=== PATIENT | male | born 1935 | race Caucasian/White ===

== ENCOUNTER 2017-03-11 03:36 | Inpatient (IN) | payer MEDICARE, OTHER ==
[~2017-03-11] VITALS: Ht 182.9 cm; Wt 84.0 kg
[~2017-03-11 03:36] MED LIST: ASPI81CH PO; BISHYD10 PO; DIGO.125 PO; DILT120ERA PO; DILT180 PO; DILT180ER PO; DILTIAZEM 24HR180 MG PO; ENOX100I SC; Glyburide-Metf1 EAC2 PO; HYDROCODONE-HOMA5 ML PO; LEVO750 PO; LISHYD2025 PO; LISI5 PO; Lanoxin125 MCG PO; Micro-K10 MEQ PO; POTCHL10ER PO; PRAV20 PO; SPIR25 PO; TRIHYD5075 PO; VALA500 PO; WARF2.5 PO; WARF3 PO; WARF5 PO; ZESTORETIC 20-121 EA PO; ZESTORETIC 20-251 EA PO; ZESTRIL40 MG PO; ZOLP10 PO
[2017-03-11 04:31] LABS: BASOPHILS ABSOLUTE AUTO 0.05 K/mm3 (0.00-0.23); BASOPHILS PERCENT AUTO 1 % (0-2); EOSINOPHILS ABSOLUTE AUTO 0.26 K/mm3 (0.00-0.68); EOSINOPHILS PERCENT AUTO 5 % (0-6); Hematocrit 37.5 % (37.0-53.0); Hemoglobin 11.7 g/dL (13.5-17.5); IMMATURE GRAN ABSOLUTE AUTO 0.02 K/mm3 (0.00-0.10); IMMATURE GRAN PERCENT AUTO 0 % (0-1); LYMPHOCYTES PERCENT AUTO 12 % (21-46); MONOCYTES ABSOLUTE AUTO 0.58 K/mm3 (0.16-1.47); MONOCYTES PERCENT AUTO 10 % (4-13); Mean Corpuscular HGB Conc 31.2 g/dL (31.5-36.5); Mean Corpuscular Volume 86 fL (80-100); Mean Platelet Volume 10.4 fL (9.1-12.4); NEUTROPHILS PERCENT AUTO 72 % (41-73); Platelet Count 188 K/mm3 (150-400); RDW Coefficient Variation 16.8 % (11.7-14.2); RDW Standard Deviation 53.5 fL (35.1-46.3); Red Blood Cell Count 4.34 M/mm3 (4.30-5.90); White Blood Cell Count 5.81 K/mm3 (4.00-11.30)
[2017-03-11 04:58] LABS: Alanine Aminotransfer (ALT/SGP 34 U/L (12-78); Albumin, Blood 3.1 g/dL (3.4-5.0); Albumin/Globulin Ratio 0.8 (0.8-1.8); Alk Phos 126 U/L (50-136); Anion Gap 8 mmol/L (6-16); Aspartate Aminotrans (AST/SGOT 28 U/L (12-37); Bilirubin, Total 0.6 mg/dL (0.1-1.0); Blood Urea Nitrogen 18 mg/dL (8-24); Bun/Creatinine Ratio 15.7 (12.0-20.0); CO2, Blood 26 mmol/L (21-32); Calcium, Blood 8.6 mg/dL (8.5-10.1); Chloride, Blood 105 mmol/L (98-108); Creatinine, Blood 1.15 mg/dL (0.60-1.20); Globulin, Blood 3.9 g/dL (2.2-4.0); Glomerular Filtration Rate >60 (60-); Glucose, Blood 165 mg/dL (70-99); Potassium, Blood 4.6 mmol/L (3.5-5.5); Sodium, Blood 139 mmol/L (136-145); Troponin I 0.198 ng/mL (0.000-0.040)
[2017-03-11 05:32] LABS: International Normalized Ratio 1.82; Prothrombin Time Results 19.3 Sec (9.7-11.5)
[2017-03-12 05:02] LABS: BASOPHILS ABSOLUTE AUTO 0.06 K/mm3 (0.00-0.23); BASOPHILS PERCENT AUTO 1 % (0-2); EOSINOPHILS ABSOLUTE AUTO 0.36 K/mm3 (0.00-0.68); EOSINOPHILS PERCENT AUTO 6 % (0-6); Hematocrit 36.7 % (37.0-53.0); Hemoglobin 11.7 g/dL (13.5-17.5); IMMATURE GRAN ABSOLUTE AUTO 0.02 K/mm3 (0.00-0.10); IMMATURE GRAN PERCENT AUTO 0 % (0-1); LYMPHOCYTES ABSOLUTE AUTO 0.83 K/mm3 (0.84-5.20); LYMPHOCYTES PERCENT AUTO 14 % (21-46); MONOCYTES PERCENT AUTO 14 % (4-13); Mean Corpuscular HGB 27.3 pg (26.0-34.0); Mean Corpuscular HGB Conc 31.9 g/dL (31.5-36.5); Mean Corpuscular Volume 86 fL (80-100); Mean Platelet Volume 10.7 fL (9.1-12.4); NEUTROPHILS ABSOLUTE AUTO 3.75 K/mm3 (1.96-9.15); NEUTROPHILS PERCENT AUTO 65 % (41-73); Platelet Count 194 K/mm3 (150-400); RDW Coefficient Variation 16.9 % (11.7-14.2); RDW Standard Deviation 52.2 fL (35.1-46.3); Red Blood Cell Count 4.29 M/mm3 (4.30-5.90); White Blood Cell Count 5.82 K/mm3 (4.00-11.30)
[2017-03-12 05:13] LABS: International Normalized Ratio 2.56; Prothrombin Time Results 27.4 Sec (9.7-11.5)
[2017-03-12 05:31] LABS: Bun/Creatinine Ratio 14.4 (12.0-20.0); Calcium, Blood 8.6 mg/dL (8.5-10.1); Creatinine, Blood 1.32 mg/dL (0.60-1.20)
[2018-01-04] MEDS ORDERED: ALBU90OI INH (08:05)
== END 2017-03-12 10:07 | disposition home or self-care (01) | DRG 292 ==
LOC: ER 03:36 → MEDS 06:25
PROVIDERS: Emergency Medicine; Internal Medicine; Pharmacist
DX: I11.0 Hypertensive heart disease with heart failure (principal); I24.8 Other forms of acute ischemic heart disease; I48.91 Unspecified atrial fibrillation; J20.9 Acute bronchitis, unspecified; E11.9 Type 2 diabetes mellitus without complications; I25.10 Atherosclerotic heart disease of native coronary artery without angina pectoris; R79.1 Abnormal coagulation profile; I50.33 Acute on chronic diastolic (congestive) heart failure; E78.5 Hyperlipidemia, unspecified; F17.210 Nicotine dependence, cigarettes, uncomplicated; Z79.899 Other long term (current) drug therapy; Z79.01 Long term (current) use of anticoagulants; Z79.84 Long term (current) use of oral hypoglycemic drugs; Z79.82 Long term (current) use of aspirin; Z88.0 Allergy status to penicillin; Z88.7 Allergy status to serum and vaccine; Z95.5 Presence of coronary angioplasty implant and graft; Z95.2 Presence of prosthetic heart valve
CPT/HCPCS: 36415; 71046; 80048; 80053; 82947; 83735; 83880; 84484; 85025; 85610; 93005; 93010; 94760; 96365; 96372; 99285; J1650; J1940; J3475

== ENCOUNTER 2017-03-28 03:54 | Emergency (ER) | payer MEDICARE, OTHER ==
[~2017-03-28] VITALS: Ht 180.3 cm; Wt 81.7 kg
[2017-03-28 05:16] LABS: BASOPHILS ABSOLUTE AUTO 0.04 K/mm3 (0.00-0.23); BASOPHILS PERCENT AUTO 1 % (0-2); EOSINOPHILS ABSOLUTE AUTO 0.28 K/mm3 (0.00-0.68); EOSINOPHILS PERCENT AUTO 4 % (0-6); Hematocrit 39.8 % (37.0-53.0); Hemoglobin 12.3 g/dL (13.5-17.5); IMMATURE GRAN ABSOLUTE AUTO 0.02 K/mm3 (0.00-0.10); IMMATURE GRAN PERCENT AUTO 0 % (0-1); LYMPHOCYTES ABSOLUTE AUTO 0.79 K/mm3 (0.84-5.20); LYMPHOCYTES PERCENT AUTO 12 % (21-46); MONOCYTES ABSOLUTE AUTO 0.83 K/mm3 (0.16-1.47); MONOCYTES PERCENT AUTO 12 % (4-13); Mean Corpuscular HGB 26.7 pg (26.0-34.0); Mean Corpuscular HGB Conc 30.9 g/dL (31.5-36.5); Mean Corpuscular Volume 87 fL (80-100); Mean Platelet Volume 10.9 fL (9.1-12.4); NEUTROPHILS ABSOLUTE AUTO 4.89 K/mm3 (1.96-9.15); NEUTROPHILS PERCENT AUTO 71 % (41-73); Platelet Count 151 K/mm3 (150-400); RDW Coefficient Variation 18.2 % (11.7-14.2); RDW Standard Deviation 56.8 fL (35.1-46.3); White Blood Cell Count 6.85 K/mm3 (4.00-11.30)
[2017-03-28 05:40] LABS: Alanine Aminotransfer (ALT/SGP 24 U/L (12-78); Albumin, Blood 3.3 g/dL (3.4-5.0); Albumin/Globulin Ratio 0.8 (0.8-1.8); Alk Phos 139 U/L (50-136); Anion Gap 7 mmol/L (6-16); Aspartate Aminotrans (AST/SGOT 18 U/L (12-37); Bilirubin, Total 0.6 mg/dL (0.1-1.0); Blood Urea Nitrogen 20 mg/dL (8-24); Bun/Creatinine Ratio 18.3 (12.0-20.0); CO2, Blood 25 mmol/L (21-32); Chloride, Blood 108 mmol/L (98-108); Creatinine, Blood 1.09 mg/dL (0.60-1.20); Globulin, Blood 3.9 g/dL (2.2-4.0); Glomerular Filtration Rate >60 (60-); Glucose, Blood 109 mg/dL (70-99); Potassium, Blood 4.8 mmol/L (3.5-5.5); Sodium, Blood 140 mmol/L (136-145); Total Protein, Blood 7.2 g/dL (6.4-8.2)
[2017-03-28 05:49] LABS: Troponin I 0.231 ng/mL (0.000-0.040)
[2017-03-28] MEDS ORDERED: Lasix40 MG PO (08:32)
[2018-01-04] MEDS ORDERED: ALBU90OI INH (08:05)
== END 2017-03-28 08:46 | disposition home or self-care (01) ==
LOC: ER 03:54
PROVIDERS: Emergency Medicine
DX: I11.0 Hypertensive heart disease with heart failure (principal); I50.9 Heart failure, unspecified; I48.91 Unspecified atrial fibrillation; R79.89 Other specified abnormal findings of blood chemistry; E11.9 Type 2 diabetes mellitus without complications; E78.5 Hyperlipidemia, unspecified; F17.210 Nicotine dependence, cigarettes, uncomplicated; Z88.0 Allergy status to penicillin; Z88.7 Allergy status to serum and vaccine; Z79.899 Other long term (current) drug therapy; Z79.01 Long term (current) use of anticoagulants; Z79.82 Long term (current) use of aspirin
CPT/HCPCS: 36415; 71046; 80053; 83880; 84484; 85025; 93005; 93010; 94640; 96374; 99284; J1940

== ENCOUNTER 2017-04-02 07:22 | Emergency (ER) | payer MEDICARE, OTHER ==
[~2017-04-02] VITALS: Ht 182.9 cm; Wt 82.5 kg
[~2017-04-02 07:22] MED LIST changes: +Lasix40 MG PO
[2017-04-02 08:18] LABS: BASOPHILS ABSOLUTE AUTO 0.02 K/mm3 (0.00-0.23); BASOPHILS PERCENT AUTO 0 % (0-2); EOSINOPHILS ABSOLUTE AUTO 0.29 K/mm3 (0.00-0.68); EOSINOPHILS PERCENT AUTO 5 % (0-6); Hematocrit 42.9 % (37.0-53.0); IMMATURE GRAN ABSOLUTE AUTO 0.02 K/mm3 (0.00-0.10); IMMATURE GRAN PERCENT AUTO 0 % (0-1); LYMPHOCYTES ABSOLUTE AUTO 0.67 K/mm3 (0.84-5.20); LYMPHOCYTES PERCENT AUTO 11 % (21-46); MONOCYTES PERCENT AUTO 13 % (4-13); Mean Corpuscular HGB 26.7 pg (26.0-34.0); Mean Corpuscular HGB Conc 30.3 g/dL (31.5-36.5); Mean Corpuscular Volume 88 fL (80-100); Mean Platelet Volume 10.7 fL (9.1-12.4); NEUTROPHILS ABSOLUTE AUTO 4.34 K/mm3 (1.96-9.15); NEUTROPHILS PERCENT AUTO 71 % (41-73); Platelet Count 146 K/mm3 (150-400); RDW Coefficient Variation 17.7 % (11.7-14.2); RDW Standard Deviation 56.4 fL (35.1-46.3); Red Blood Cell Count 4.87 M/mm3 (4.30-5.90); White Blood Cell Count 6.14 K/mm3 (4.00-11.30)
[2017-04-02 08:32] LABS: Anion Gap 9 mmol/L (6-16); Blood Urea Nitrogen 24 mg/dL (8-24); Bun/Creatinine Ratio 22.9 (12.0-20.0); CO2, Blood 25 mmol/L (21-32); Calcium, Blood 8.8 mg/dL (8.5-10.1); Chloride, Blood 103 mmol/L (98-108); Creatinine, Blood 1.05 mg/dL (0.60-1.20); Glomerular Filtration Rate >60 (60-); Glucose, Blood 138 mg/dL (70-99); Potassium, Blood 4.6 mmol/L (3.5-5.5); Sodium, Blood 137 mmol/L (136-145); Troponin I 0.175 ng/mL (0.000-0.040)
[2017-04-02 08:52] LABS: International Normalized Ratio 3.23; Prothrombin Time Results 34.8 Sec (9.7-11.5)
[2017-04-02] MEDS ORDERED: ALBU90OI6 INH (09:26)
[2018-01-04] MEDS ORDERED: ALBU90OI INH (08:05)
== END 2017-04-02 09:38 | disposition home or self-care (01) ==
LOC: ER 07:22
PROVIDERS: Emergency Medicine
DX: I11.0 Hypertensive heart disease with heart failure (principal); I50.9 Heart failure, unspecified; J44.9 Chronic obstructive pulmonary disease, unspecified; R79.89 Other specified abnormal findings of blood chemistry; E11.9 Type 2 diabetes mellitus without complications; E78.5 Hyperlipidemia, unspecified; F17.210 Nicotine dependence, cigarettes, uncomplicated; Z88.0 Allergy status to penicillin; Z88.7 Allergy status to serum and vaccine; Z79.899 Other long term (current) drug therapy; Z79.01 Long term (current) use of anticoagulants; Z79.82 Long term (current) use of aspirin
CPT/HCPCS: 36415; 71045; 80048; 83880; 84484; 85025; 85610; 93005; 93010; 94640; 96374; 99283; J1940

== ENCOUNTER 2017-04-06 19:58 | Inpatient (IN) | payer MEDICARE, OTHER ==
[~2017-04-06] VITALS: Ht 182.9 cm; Wt 87.1 kg
[~2017-04-06 19:58] MED LIST changes: +ALBU90OI6 INH
[2017-04-06 21:44] LABS: Troponin I 0.124 ng/mL (0.000-0.040)
[2017-04-06 21:51] LABS: Alanine Aminotransfer (ALT/SGP 27 U/L (12-78); Albumin, Blood 3.9 g/dL (3.4-5.0); Albumin/Globulin Ratio 0.8 (0.8-1.8); Alk Phos 169 U/L (50-136); Anion Gap 12 mmol/L (6-16); Aspartate Aminotrans (AST/SGOT 32 U/L (12-37); Bilirubin, Total 0.9 mg/dL (0.1-1.0); Blood Urea Nitrogen 29 mg/dL (8-24); Bun/Creatinine Ratio 24.8 (12.0-20.0); CO2, Blood 23 mmol/L (21-32); Calcium, Blood 9.2 mg/dL (8.5-10.1); Chloride, Blood 99 mmol/L (98-108); Creatinine, Blood 1.17 mg/dL (0.60-1.20); Digoxin (Lanoxin) 0.13 ug/mL (0.80-2.00); Globulin, Blood 5.1 g/dL (2.2-4.0); Glomerular Filtration Rate >60 (60-); Glucose, Blood 81 mg/dL (70-99); Potassium, Blood 4.6 mmol/L (3.5-5.5); Sodium, Blood 134 mmol/L (136-145)
[2017-04-06 22:16] LABS: BASOPHILS ABSOLUTE AUTO 0.03 K/mm3 (0.00-0.23); BASOPHILS PERCENT AUTO 0 % (0-2); EOSINOPHILS ABSOLUTE AUTO 0.29 K/mm3 (0.00-0.68); EOSINOPHILS PERCENT AUTO 4 % (0-6); Hemoglobin 12.3 g/dL (13.5-17.5); IMMATURE GRAN ABSOLUTE AUTO 0.02 K/mm3 (0.00-0.10); IMMATURE GRAN PERCENT AUTO 0 % (0-1); LYMPHOCYTES ABSOLUTE AUTO 0.47 K/mm3 (0.84-5.20); LYMPHOCYTES PERCENT AUTO 6 % (21-46); MONOCYTES ABSOLUTE AUTO 0.79 K/mm3 (0.16-1.47); MONOCYTES PERCENT AUTO 11 % (4-13); Mean Corpuscular HGB 26.7 pg (26.0-34.0); Mean Corpuscular HGB Conc 31.5 g/dL (31.5-36.5); Mean Platelet Volume 9.8 fL (9.1-12.4); NEUTROPHILS ABSOLUTE AUTO 5.77 K/mm3 (1.96-9.15); NEUTROPHILS PERCENT AUTO 78 % (41-73); Platelet Count 112 K/mm3 (150-400); RDW Coefficient Variation 17.7 % (11.7-14.2); RDW Standard Deviation 54.7 fL (35.1-46.3); White Blood Cell Count 7.37 K/mm3 (4.00-11.30)
[2017-04-06 22:22] LABS: Mean Corpuscular Volume 85 fL (80-100)
[2017-04-06 22:28] LABS: International Normalized Ratio 3.12; Prothrombin Time Results 33.6 Sec (9.7-11.5)
[2017-04-07 05:14] LABS: BASOPHILS ABSOLUTE AUTO 0.03 K/mm3 (0.00-0.23); BASOPHILS PERCENT AUTO 1 % (0-2); EOSINOPHILS ABSOLUTE AUTO 0.12 K/mm3 (0.00-0.68); EOSINOPHILS PERCENT AUTO 2 % (0-6); Hematocrit 38.8 % (37.0-53.0); Hemoglobin 12.2 g/dL (13.5-17.5); IMMATURE GRAN ABSOLUTE AUTO 0.02 K/mm3 (0.00-0.10); IMMATURE GRAN PERCENT AUTO 0 % (0-1); LYMPHOCYTES ABSOLUTE AUTO 0.65 K/mm3 (0.84-5.20); LYMPHOCYTES PERCENT AUTO 10 % (21-46); MONOCYTES ABSOLUTE AUTO 0.75 K/mm3 (0.16-1.47); MONOCYTES PERCENT AUTO 12 % (4-13); Mean Corpuscular HGB 26.6 pg (26.0-34.0); Mean Corpuscular HGB Conc 31.4 g/dL (31.5-36.5); Mean Corpuscular Volume 85 fL (80-100); Mean Platelet Volume 11.7 fL (9.1-12.4); NEUTROPHILS ABSOLUTE AUTO 4.96 K/mm3 (1.96-9.15); NEUTROPHILS PERCENT AUTO 76 % (41-73); Platelet Count 122 K/mm3 (150-400); RDW Coefficient Variation 17.8 % (11.7-14.2); RDW Standard Deviation 54.8 fL (35.1-46.3); Red Blood Cell Count 4.59 M/mm3 (4.30-5.90); White Blood Cell Count 6.53 K/mm3 (4.00-11.30)
[2017-04-07 05:35] LABS: International Normalized Ratio 3.05; Prothrombin Time Results 32.8 Sec (9.7-11.5)
[2017-04-07 05:42] LABS: Albumin, Blood 3.2 g/dL (3.4-5.0); Anion Gap 8 mmol/L (6-16); Blood Urea Nitrogen 30 mg/dL (8-24); Bun/Creatinine Ratio 25.4 (12.0-20.0); CO2, Blood 28 mmol/L (21-32); Calcium, Blood 8.5 mg/dL (8.5-10.1); Chloride, Blood 100 mmol/L (98-108); Creatinine, Blood 1.18 mg/dL (0.60-1.20); Glomerular Filtration Rate >60 (60-); Glucose, Blood 102 mg/dL (70-99); Phosphorus, Blood 3.4 mg/dL (2.5-4.9); Potassium, Blood 4.8 mmol/L (3.5-5.5); Sodium, Blood 136 mmol/L (136-145)
[2017-04-08 05:09] LABS: International Normalized Ratio 2.52
[2017-04-08] MEDS ORDERED: Lopressor 50 mg50 MG PO (09:35)
[2018-01-04] MEDS ORDERED: ALBU90OI INH (08:05)
== END 2017-04-08 11:21 | disposition home or self-care (01) | DRG 309 ==
LOC: ER 19:58 → PCU 04-07 01:14
PROVIDERS: Family Medicine; Physician Assistant
DX: I48.91 Unspecified atrial fibrillation (principal); E87.1 Hypo-osmolality and hyponatremia; I42.9 Cardiomyopathy, unspecified; I11.0 Hypertensive heart disease with heart failure; I50.32 Chronic diastolic (congestive) heart failure; E11.9 Type 2 diabetes mellitus without complications; I25.10 Atherosclerotic heart disease of native coronary artery without angina pectoris; E78.5 Hyperlipidemia, unspecified; J44.9 Chronic obstructive pulmonary disease, unspecified; Z95.5 Presence of coronary angioplasty implant and graft; Z95.2 Presence of prosthetic heart valve; Z88.0 Allergy status to penicillin; Z88.7 Allergy status to serum and vaccine; Z79.01 Long term (current) use of anticoagulants; Z79.82 Long term (current) use of aspirin; Z79.84 Long term (current) use of oral hypoglycemic drugs; Z79.899 Other long term (current) drug therapy; Z85.828 Personal history of other malignant neoplasm of skin; Z87.891 Personal history of nicotine dependence
CPT/HCPCS: 36415; 71046; 80053; 80069; 80162; 82947; 83735; 83880; 84443; 84484; 85025; 85610; 93005; 93010; 93306; 94760; 96365; 96366; 99285; J2060

== ENCOUNTER 2017-04-14 08:05 | Inpatient (IN) | payer MEDICARE, OTHER ==
[~2017-04-14] VITALS: Ht 182.9 cm; Wt 80.9 kg
[~2017-04-14 08:05] MED LIST changes: +Lopressor 50 mg50 MG PO
[2017-04-14 09:04] LABS: BASOPHILS ABSOLUTE AUTO 0.06 K/mm3 (0.00-0.23); BASOPHILS PERCENT AUTO 1 % (0-2); EOSINOPHILS ABSOLUTE AUTO 0.34 K/mm3 (0.00-0.68); EOSINOPHILS PERCENT AUTO 3 % (0-6); Hematocrit 41.9 % (37.0-53.0); Hemoglobin 12.9 g/dL (13.5-17.5); IMMATURE GRAN ABSOLUTE AUTO 0.09 K/mm3 (0.00-0.10); IMMATURE GRAN PERCENT AUTO 1 % (0-1); LYMPHOCYTES ABSOLUTE AUTO 0.55 K/mm3 (0.84-5.20); LYMPHOCYTES PERCENT AUTO 5 % (21-46); MONOCYTES ABSOLUTE AUTO 1.02 K/mm3 (0.16-1.47); MONOCYTES PERCENT AUTO 9 % (4-13); Mean Corpuscular HGB 26.7 pg (26.0-34.0); Mean Corpuscular HGB Conc 30.8 g/dL (31.5-36.5); Mean Corpuscular Volume 87 fL (80-100); Mean Platelet Volume 9.9 fL (9.1-12.4); NEUTROPHILS ABSOLUTE AUTO 9.96 K/mm3 (1.96-9.15); NEUTROPHILS PERCENT AUTO 83 % (41-73); Platelet Count 209 K/mm3 (150-400); RDW Coefficient Variation 17.7 % (11.7-14.2); RDW Standard Deviation 56.4 fL (35.1-46.3); Red Blood Cell Count 4.83 M/mm3 (4.30-5.90); White Blood Cell Count 12.02 K/mm3 (4.00-11.30)
[2017-04-14 09:18] LABS: International Normalized Ratio 2.68; Prothrombin Time Results 28.7 Sec (9.7-11.5)
[2017-04-14 09:24] LABS: Alanine Aminotransfer (ALT/SGP 26 U/L (12-78); Albumin, Blood 3.4 g/dL (3.4-5.0); Albumin/Globulin Ratio 0.8 (0.8-1.8); Alk Phos 148 U/L (50-136); Anion Gap 7 mmol/L (6-16); Aspartate Aminotrans (AST/SGOT 24 U/L (12-37); Bilirubin, Total 0.5 mg/dL (0.1-1.0); Blood Urea Nitrogen 23 mg/dL (8-24); Bun/Creatinine Ratio 19.5 (12.0-20.0); CO2, Blood 29 mmol/L (21-32); Chloride, Blood 101 mmol/L (98-108); Creatinine, Blood 1.18 mg/dL (0.60-1.20); Globulin, Blood 4.5 g/dL (2.2-4.0); Glomerular Filtration Rate >60 (60-); Glucose, Blood 155 mg/dL (70-99); Potassium, Blood 4.6 mmol/L (3.5-5.5); Sodium, Blood 137 mmol/L (136-145); Total Protein, Blood 7.9 g/dL (6.4-8.2); Troponin I 0.099 ng/mL (0.000-0.040)
[2017-04-14 16:14] LABS: Hematocrit 38.3 % (37.0-53.0); Hemoglobin 12.3 g/dL (13.5-17.5)
[2017-04-14 22:00] LABS: Hematocrit 36.8 % (37.0-53.0); Hemoglobin 11.7 g/dL (13.5-17.5)
[2017-04-15 04:04] LABS: Hematocrit 38.6 % (37.0-53.0); Mean Corpuscular HGB Conc 31.1 g/dL (31.5-36.5); Mean Corpuscular Volume 87 fL (80-100); Mean Platelet Volume 10.1 fL (9.1-12.4); Platelet Count 182 K/mm3 (150-400); RDW Coefficient Variation 17.5 % (11.7-14.2); RDW Standard Deviation 55.6 fL (35.1-46.3); Red Blood Cell Count 4.45 M/mm3 (4.30-5.90); White Blood Cell Count 7.65 K/mm3 (4.00-11.30)
[2017-04-15 04:21] LABS: Anion Gap 6 mmol/L (6-16); Blood Urea Nitrogen 21 mg/dL (8-24); Bun/Creatinine Ratio 20.6 (12.0-20.0); CO2, Blood 27 mmol/L (21-32); Calcium, Blood 8.4 mg/dL (8.5-10.1); Chloride, Blood 105 mmol/L (98-108); Creatinine, Blood 1.02 mg/dL (0.60-1.20); Glomerular Filtration Rate >60 (60-); Glucose, Blood 117 mg/dL (70-99); Potassium, Blood 4.2 mmol/L (3.5-5.5); Sodium, Blood 138 mmol/L (136-145)
[2017-04-15 09:36] LABS: Hematocrit 38.8 % (37.0-53.0); Hemoglobin 12.2 g/dL (13.5-17.5)
[2017-04-15 09:47] LABS: International Normalized Ratio 2.78; Prothrombin Time Results 29.8 Sec (9.7-11.5)
[2018-01-04] MEDS ORDERED: ALBU90OI INH (08:05)
== END 2017-04-15 12:20 | disposition left against medical advice (07) | DRG 378 ==
LOC: ER 08:05 → PCU 15:37
PROVIDERS: Internal Medicine; Physician Assistant
DX: K57.91 Diverticulosis of intestine, part unspecified, without perforation or abscess with bleeding (principal); I50.42 Chronic combined systolic (congestive) and diastolic (congestive) heart failure; E11.69 Type 2 diabetes mellitus with other specified complication; M86.172 Other acute osteomyelitis, left ankle and foot; I48.2 Chronic atrial fibrillation; I11.0 Hypertensive heart disease with heart failure; E11.9 Type 2 diabetes mellitus without complications; J44.9 Chronic obstructive pulmonary disease, unspecified; Z79.01 Long term (current) use of anticoagulants; Z88.0 Allergy status to penicillin; Z79.82 Long term (current) use of aspirin; E78.5 Hyperlipidemia, unspecified; I25.10 Atherosclerotic heart disease of native coronary artery without angina pectoris; Z95.0 Presence of cardiac pacemaker; Z95.5 Presence of coronary angioplasty implant and graft; Z96.651 Presence of right artificial knee joint; F17.211 Nicotine dependence, cigarettes, in remission; Z79.84 Long term (current) use of oral hypoglycemic drugs; Z85.828 Personal history of other malignant neoplasm of skin
CPT/HCPCS: 36415; 71046; 74177; 80048; 80053; 82947; 83690; 84484; 85014; 85018; 85025; 85027; 85610; 86850; 86900; 86901; 93005; 93010; 94760; 99285; J7042; Q9967

== ENCOUNTER 2017-04-24 16:59 | Inpatient (IN) | payer MEDICARE, OTHER ==
[~2017-04-24] VITALS: Ht 182.9 cm; Wt 80.1 kg
[2017-04-24 18:18] LABS: BASOPHILS ABSOLUTE AUTO 0.03 K/mm3 (0.00-0.23); BASOPHILS PERCENT AUTO 0 % (0-2); EOSINOPHILS ABSOLUTE AUTO 0.02 K/mm3 (0.00-0.68); EOSINOPHILS PERCENT AUTO 0 % (0-6); Hematocrit 34.9 % (37.0-53.0); Hemoglobin 11.1 g/dL (13.5-17.5); IMMATURE GRAN ABSOLUTE AUTO 0.05 K/mm3 (0.00-0.10); IMMATURE GRAN PERCENT AUTO 0 % (0-1); LYMPHOCYTES ABSOLUTE AUTO 0.74 K/mm3 (0.84-5.20); LYMPHOCYTES PERCENT AUTO 6 % (21-46); MONOCYTES ABSOLUTE AUTO 1.33 K/mm3 (0.16-1.47); MONOCYTES PERCENT AUTO 10 % (4-13); Mean Corpuscular HGB 26.9 pg (26.0-34.0); Mean Corpuscular HGB Conc 31.8 g/dL (31.5-36.5); Mean Corpuscular Volume 85 fL (80-100); Mean Platelet Volume 10.2 fL (9.1-12.4); NEUTROPHILS ABSOLUTE AUTO 11.27 K/mm3 (1.96-9.15); NEUTROPHILS PERCENT AUTO 84 % (41-73); Platelet Count 198 K/mm3 (150-400); RDW Coefficient Variation 17.2 % (11.7-14.2); RDW Standard Deviation 53.5 fL (35.1-46.3); Red Blood Cell Count 4.13 M/mm3 (4.30-5.90); White Blood Cell Count 13.44 K/mm3 (4.00-11.30)
[2017-04-24 18:29] LABS: International Normalized Ratio 2.88
[2017-04-24 18:54] LABS: Alanine Aminotransfer (ALT/SGP 21 U/L (12-78); Albumin, Blood 3.1 g/dL (3.4-5.0); Albumin/Globulin Ratio 0.7 (0.8-1.8); Alk Phos 112 U/L (50-136); Anion Gap 9 mmol/L (6-16); Aspartate Aminotrans (AST/SGOT 32 U/L (12-37); Bilirubin, Total 0.9 mg/dL (0.1-1.0); Blood Urea Nitrogen 30 mg/dL (8-24); Bun/Creatinine Ratio 26.1 (12.0-20.0); CO2, Blood 25 mmol/L (21-32); Calcium, Blood 8.9 mg/dL (8.5-10.1); Chloride, Blood 101 mmol/L (98-108); Creatinine, Blood 1.15 mg/dL (0.60-1.20); Globulin, Blood 4.5 g/dL (2.2-4.0); Glomerular Filtration Rate >60 (60-); Glucose, Blood 34 mg/dL (70-99); Potassium, Blood 4.5 mmol/L (3.5-5.5); Sodium, Blood 135 mmol/L (136-145); Total Protein, Blood 7.6 g/dL (6.4-8.2)
[2017-04-25 05:55] LABS: Hematocrit 31.4 % (37.0-53.0); Hemoglobin 9.9 g/dL (13.5-17.5); Mean Corpuscular HGB 26.8 pg (26.0-34.0); Mean Corpuscular HGB Conc 31.5 g/dL (31.5-36.5); Mean Corpuscular Volume 85 fL (80-100); Mean Platelet Volume 10.7 fL (9.1-12.4); Platelet Count 159 K/mm3 (150-400); RDW Coefficient Variation 17.2 % (11.7-14.2); RDW Standard Deviation 53.9 fL (35.1-46.3); Red Blood Cell Count 3.69 M/mm3 (4.30-5.90); White Blood Cell Count 11.08 K/mm3 (4.00-11.30)
[2017-04-25 06:17] LABS: Anion Gap 6 mmol/L (6-16); Blood Urea Nitrogen 25 mg/dL (8-24); Bun/Creatinine Ratio 24.3 (12.0-20.0); CO2, Blood 27 mmol/L (21-32); Calcium, Blood 8.4 mg/dL (8.5-10.1); Chloride, Blood 102 mmol/L (98-108); Creatinine, Blood 1.03 mg/dL (0.60-1.20); Glomerular Filtration Rate >60 (60-); Glucose, Blood 131 mg/dL (70-99); Potassium, Blood 4.2 mmol/L (3.5-5.5); Sodium, Blood 135 mmol/L (136-145)
[2017-04-25 06:18] LABS: BAND PERCENT MAN 4 % (0-8); BASOPHILS ABSOLUTE MAN 0.11 K/mm3 (0.00-0.23); BASOPHILS PERCENT MAN 1 % (0-2); EOSINOPHILS PERCENT MAN 0 % (0-6); LYMPHOCYTES ABSOLUTE MAN 0.33 K/mm3 (0.84-5.20); LYMPHOCYTES PERCENT MAN 3 % (21-46); MONOCYTES ABSOLUTE MAN 0.55 K/mm3 (0.16-1.47); MONOCYTES PERCENT MAN 5 % (4-13); NEUTROPHILS ABSOLUTE MAN 10.08 K/mm3 (1.96-9.15); SEG NEUTROPHILS PERCENT MAN 87 % (41-73); TOTAL CELLS COUNTED 100
[2017-04-25 08:33] LABS: Prothrombin Time Results 43.4 Sec (9.7-11.5)
[2017-04-26 05:28] LABS: BASOPHILS ABSOLUTE AUTO 0.04 K/mm3 (0.00-0.23); BASOPHILS PERCENT AUTO 0 % (0-2); EOSINOPHILS ABSOLUTE AUTO 0.23 K/mm3 (0.00-0.68); EOSINOPHILS PERCENT AUTO 2 % (0-6); Hematocrit 27.8 % (37.0-53.0); Hemoglobin 8.9 g/dL (13.5-17.5); IMMATURE GRAN ABSOLUTE AUTO 0.04 K/mm3 (0.00-0.10); IMMATURE GRAN PERCENT AUTO 0 % (0-1); LYMPHOCYTES ABSOLUTE AUTO 0.76 K/mm3 (0.84-5.20); LYMPHOCYTES PERCENT AUTO 8 % (21-46); MONOCYTES ABSOLUTE AUTO 1.16 K/mm3 (0.16-1.47); MONOCYTES PERCENT AUTO 12 % (4-13); Mean Corpuscular Volume 84 fL (80-100); Mean Platelet Volume 10.6 fL (9.1-12.4); NEUTROPHILS ABSOLUTE AUTO 7.81 K/mm3 (1.96-9.15); NEUTROPHILS PERCENT AUTO 78 % (41-73); Platelet Count 146 K/mm3 (150-400); RDW Coefficient Variation 17.2 % (11.7-14.2); White Blood Cell Count 10.04 K/mm3 (4.00-11.30)
[2017-04-26 05:59] LABS: International Normalized Ratio 1.82; Prothrombin Time Results 19.3 Sec (9.7-11.5)
[2017-04-26 06:02] LABS: Albumin, Blood 2.2 g/dL (3.4-5.0); Anion Gap 8 mmol/L (6-16); Blood Urea Nitrogen 24 mg/dL (8-24); Bun/Creatinine Ratio 21.1 (12.0-20.0); CO2, Blood 25 mmol/L (21-32); Calcium, Blood 8.1 mg/dL (8.5-10.1); Chloride, Blood 102 mmol/L (98-108); Creatinine, Blood 1.14 mg/dL (0.60-1.20); Glomerular Filtration Rate >60 (60-); Glucose, Blood 72 mg/dL (70-99); Phosphorus, Blood 2.7 mg/dL (2.5-4.9); Potassium, Blood 3.9 mmol/L (3.5-5.5); Sodium, Blood 135 mmol/L (136-145)
[2017-04-26 18:01] LABS: Vancomycin, Trough 8.5 ug/mL (5.0-10.0)
[2017-04-27 05:22] LABS: BASOPHILS ABSOLUTE AUTO 0.06 K/mm3 (0.00-0.23); BASOPHILS PERCENT AUTO 1 % (0-2); EOSINOPHILS ABSOLUTE AUTO 0.29 K/mm3 (0.00-0.68); EOSINOPHILS PERCENT AUTO 3 % (0-6); Hematocrit 29.2 % (37.0-53.0); Hemoglobin 9.2 g/dL (13.5-17.5); IMMATURE GRAN ABSOLUTE AUTO 0.04 K/mm3 (0.00-0.10); IMMATURE GRAN PERCENT AUTO 0 % (0-1); LYMPHOCYTES ABSOLUTE AUTO 0.46 K/mm3 (0.84-5.20); LYMPHOCYTES PERCENT AUTO 5 % (21-46); MONOCYTES PERCENT AUTO 11 % (4-13); Mean Corpuscular HGB 26.7 pg (26.0-34.0); Mean Corpuscular HGB Conc 31.5 g/dL (31.5-36.5); Mean Corpuscular Volume 85 fL (80-100); Mean Platelet Volume 10.4 fL (9.1-12.4); NEUTROPHILS ABSOLUTE AUTO 7.33 K/mm3 (1.96-9.15); NEUTROPHILS PERCENT AUTO 80 % (41-73); Platelet Count 145 K/mm3 (150-400); RDW Standard Deviation 53.1 fL (35.1-46.3); Red Blood Cell Count 3.44 M/mm3 (4.30-5.90); White Blood Cell Count 9.18 K/mm3 (4.00-11.30)
[2017-04-27 05:35] LABS: International Normalized Ratio 1.34; Prothrombin Time Results 14.1 Sec (9.7-11.5)
[2017-04-27 06:15] LABS: Albumin, Blood 2.1 g/dL (3.4-5.0); Anion Gap 8 mmol/L (6-16); Blood Urea Nitrogen 18 mg/dL (8-24); Bun/Creatinine Ratio 17.6 (12.0-20.0); CO2, Blood 23 mmol/L (21-32); Calcium, Blood 8.4 mg/dL (8.5-10.1); Chloride, Blood 102 mmol/L (98-108); Creatinine, Blood 1.02 mg/dL (0.60-1.20); Glomerular Filtration Rate >60 (60-); Glucose, Blood 206 mg/dL (70-99); Phosphorus, Blood 2.4 mg/dL (2.5-4.9); Potassium, Blood 4.2 mmol/L (3.5-5.5); Sodium, Blood 133 mmol/L (136-145)
[2017-04-28] MEDS ORDERED: SACC250C PO (08:35)
[2017-04-28] MEDS ORDERED: Cleocin HCl300 MG PO (08:36)
[2017-04-28] MEDS ORDERED: ZESTORETIC 20-121 EA PO (08:36)
[2017-04-28] MEDS ORDERED: METF500 PO (08:38)
[2018-01-04] MEDS ORDERED: ALBU90OI INH (08:05)
== END 2017-04-28 10:10 | disposition home health service (06) | DRG 854 ==
LOC: ER 16:59 → MEDS 19:09
PROVIDERS: Emergency Medicine; Family Medicine; Internal Medicine; Podiatrist
PROC: 3E0234Z Introduction of Serum, Toxoid and Vaccine into Muscle, Percutaneous Approach (ICD-10-PCS; 2017-04-24)
PROC: 0Y6S0Z0 Detachment at Left 2nd Toe, Complete, Open Approach (ICD-10-PCS; principal; 2017-04-27 16:30)
DX: A41.9 Sepsis, unspecified organism (principal); I96 Gangrene, not elsewhere classified; I95.9 Hypotension, unspecified; E11.40 Type 2 diabetes mellitus with diabetic neuropathy, unspecified; I11.0 Hypertensive heart disease with heart failure; E11.621 Type 2 diabetes mellitus with foot ulcer; I50.42 Chronic combined systolic (congestive) and diastolic (congestive) heart failure; E11.52 Type 2 diabetes mellitus with diabetic peripheral angiopathy with gangrene; E87.1 Hypo-osmolality and hyponatremia; M86.9 Osteomyelitis, unspecified; L03.116 Cellulitis of left lower limb; E11.649 Type 2 diabetes mellitus with hypoglycemia without coma; I48.2 Chronic atrial fibrillation; E11.69 Type 2 diabetes mellitus with other specified complication; Z23 Encounter for immunization; I25.10 Atherosclerotic heart disease of native coronary artery without angina pectoris; E78.5 Hyperlipidemia, unspecified; J44.9 Chronic obstructive pulmonary disease, unspecified; R79.1 Abnormal coagulation profile; D64.9 Anemia, unspecified; Z95.2 Presence of prosthetic heart valve; M20.12 Hallux valgus (acquired), left foot; M20.11 Hallux valgus (acquired), right foot; M20.42 Other hammer toe(s) (acquired), left foot; M20.41 Other hammer toe(s) (acquired), right foot; L97.529 Non-pressure chronic ulcer of other part of left foot with unspecified severity
CPT/HCPCS: 36415; 73630; 80048; 80053; 80069; 80202; 82947; 83036; 83605; 85025; 85610; 87040; 88305; 88311; 93925; 94760; 96365; 96375; 99285; J1956; J2250; J3010; J3370; J3490; J7050; J7120

== ENCOUNTER 2018-02-14 01:24 | Inpatient (IN) | payer MEDICARE, OTHER ==
[~2018-02-14] VITALS: Ht 182.9 cm; Wt 82.4 kg
[~2018-02-14 01:24] MED LIST changes: +ALBU90OI INH; +Cleocin HCl300 MG PO; +METF500 PO; +SACC250C PO
[2018-02-14 02:24] LABS: BASOPHILS ABSOLUTE AUTO 0.02 K/mm3 (0.00-0.23); BASOPHILS PERCENT AUTO 0 % (0-2); EOSINOPHILS ABSOLUTE AUTO 0.06 K/mm3 (0.00-0.68); EOSINOPHILS PERCENT AUTO 1 % (0-6); Hematocrit 42.1 % (37.0-53.0); Hemoglobin 13.5 g/dL (13.5-17.5); IMMATURE GRAN ABSOLUTE AUTO 0.03 K/mm3 (0.00-0.10); IMMATURE GRAN PERCENT AUTO 0 % (0-1); LYMPHOCYTES ABSOLUTE AUTO 0.37 K/mm3 (0.84-5.20); LYMPHOCYTES PERCENT AUTO 5 % (21-46); MONOCYTES ABSOLUTE AUTO 0.73 K/mm3 (0.16-1.47); MONOCYTES PERCENT AUTO 10 % (4-13); Mean Corpuscular HGB Conc 32.1 g/dL (31.5-36.5); Mean Corpuscular Volume 94 fL (80-100); Mean Platelet Volume 10.8 fL (9.1-12.4); NEUTROPHILS ABSOLUTE AUTO 6.48 K/mm3 (1.96-9.15); NEUTROPHILS PERCENT AUTO 84 % (41-73); Platelet Count 122 K/mm3 (150-400); RDW Coefficient Variation 15.8 % (11.7-14.2); RDW Standard Deviation 54.4 fL (35.1-46.3); White Blood Cell Count 7.69 K/mm3 (4.00-11.30)
[2018-02-14 02:41] LABS: Alanine Aminotransfer (ALT/SGP 30 U/L (12-78); Albumin, Blood 3.3 g/dL (3.4-5.0); Albumin/Globulin Ratio 0.8 (0.8-1.8); Alk Phos 111 U/L (50-136); Anion Gap 7 mmol/L (6-16); Aspartate Aminotrans (AST/SGOT 41 U/L (12-37); Bilirubin, Total 1.1 mg/dL (0.1-1.0); Blood Urea Nitrogen 22 mg/dL (8-24); CO2, Blood 25 mmol/L (21-32); Calcium, Blood 8.9 mg/dL (8.5-10.1); Chloride, Blood 106 mmol/L (98-108); Creatinine, Blood 1.22 mg/dL (0.60-1.20); Globulin, Blood 4.3 g/dL (2.2-4.0); Glomerular Filtration Rate >60 (60-); Glucose, Blood 42 mg/dL (70-99); Potassium, Blood 4.5 mmol/L (3.5-5.5); Sodium, Blood 138 mmol/L (136-145); Total Protein, Blood 7.6 g/dL (6.4-8.2)
[2018-02-14 02:44] LABS: Prothrombin Time Results 46.8 Sec (9.7-11.5)
[2018-02-14 02:46] LABS: International Normalized Ratio 4.98
[2018-02-14 02:54] LABS: Influenza A Positive (NEGATIVE); Influenza B Negative (NEGATIVE)
[2018-02-14 06:35] LABS: Hematocrit 35.5 % (37.0-53.0); Hemoglobin 11.6 g/dL (13.5-17.5); Mean Corpuscular HGB 30.3 pg (26.0-34.0); Mean Corpuscular HGB Conc 32.7 g/dL (31.5-36.5); Mean Corpuscular Volume 93 fL (80-100); Mean Platelet Volume 10.9 fL (9.1-12.4); Platelet Count 103 K/mm3 (150-400); RDW Coefficient Variation 15.9 % (11.7-14.2); RDW Standard Deviation 54.4 fL (35.1-46.3); Red Blood Cell Count 3.83 M/mm3 (4.30-5.90); White Blood Cell Count 6.64 K/mm3 (4.00-11.30)
--- NOTE | 2018-02-14 06:52 | NUR ---
PATIENT ARRIVED TO ICU 6 VIA GURNEY FROM ED WITH DX OF FLU, SEPSIS, AND HYPOTENSION FOR DOCTOR TYLER. PATIENT TRANSFERED TO ICU BED WITH SLIDER SHEET AND PLACED ON ICU MONITORS. MARGI A&O X3 ASSISTING WITH POSITIONING IN BED.
[2018-02-14 06:56] LABS: Alanine Aminotransfer (ALT/SGP 19 U/L (12-78); Albumin, Blood 2.4 g/dL (3.4-5.0); Albumin/Globulin Ratio 0.8 (0.8-1.8); Alk Phos 81 U/L (50-136); Anion Gap 9 mmol/L (6-16); Aspartate Aminotrans (AST/SGOT 25 U/L (12-37); Bilirubin, Total 0.7 mg/dL (0.1-1.0); Blood Urea Nitrogen 20 mg/dL (8-24); Bun/Creatinine Ratio 19.4 (12.0-20.0); CO2, Blood 21 mmol/L (21-32); Calcium, Blood 7.4 mg/dL (8.5-10.1); Chloride, Blood 109 mmol/L (98-108); Creatinine, Blood 1.03 mg/dL (0.60-1.20); Globulin, Blood 3.2 g/dL (2.2-4.0); Glomerular Filtration Rate >60 (60-); Glucose, Blood 130 mg/dL (70-99); Potassium, Blood 4.6 mmol/L (3.5-5.5); Sodium, Blood 139 mmol/L (136-145); Total Protein, Blood 5.6 g/dL (6.4-8.2)
[2018-02-14] MEDS ORDERED: POTCHL20ER PO (08:58)
[2018-02-14] MEDS ORDERED: TIZANIDINE HCL2 MG PO (09:02)
[2018-02-14] MEDS ORDERED: FURO40 PO (09:03)
[2018-02-14] MEDS ORDERED: WARF2.5 PO (09:05)
[2018-02-14] MEDS ORDERED: METF500C PO (09:07)
--- NOTE | 2018-02-14 09:12 | NUR ---
ADMIT- Pt able to participate in the admit process. VSS. Monitor shows a-fib with controlled rate. Febrile with temp 99.6. Denies pain and appears in no acute distress. Falls asleep easily. IVF infusing at 75ml/hr.
[2018-02-14 10:13] LABS: Source, Urine Clean Catch
[2018-02-14 10:18] LABS: Bilirubin, Urine Neg (Neg); Blood, Urine 1+ (Neg); Glucose Qualitative, Urine 2+ (Neg); Ketones, Urine Neg (Neg); Leukocyte Esterase, Urine 1+ (Neg); Nitrite, Urine Neg (Neg); Protein, Urine 3+ (Neg); Specific Gravity, Urine 1.015 (1.003-1.022); Urobilinogen, Urine 2+ (Normal)
[2018-02-14 10:31] LABS: Appearance, Urine Clear (Clear); Bacteria Rare /hpf; Color, Urine Yellow (P-Yellow); Red Blood Cells, Urine 0-2 /hpf (0-2); Squamous Epithelial Cells Few /hpf (Few); White Blood Cells, Urine 0-2 /hpf (0-5)
--- NOTE | 2018-02-14 13:15 | NUR ---
Summary- Will report off to Brandon GOLDSTEIN. Pt con't sleepy but arouses easily. Purvi. sips of H2O and took pudding with problems. Will have full diet for dinner. Monitor and VS remain stable. Dr. Marin into see pt. Orders noted. Pt. called SO and talked on phone.
--- NOTE | 2018-02-14 15:00 | NUR ---
PT AWAKE, ALERT, ABLE TO ANSWER QUESTIONS. IS CONFUSED REGARDING MEDICATIONS, USE OF COUMADIN. BLOOD SUGAR 88. LEFT FOREARM IV INTACT. AFIB RATE CONTROLLED. BP STABLE. COLOR POOR, PALE WITH MAGGIE COMPLEXION. SKIN W/D. STATES FEELS MUCH BETTER THAN WHEN HE CAME TO HOSPITAL. DENIES PAIN. ASSISTED TO REPOSITION IN BED, GENERALIZED WEAKNESS. DROPLET PRECAUTIONS.
--- NOTE | 2018-02-14 17:15 | NUR ---
VSS. CONTINUE TO MONITOR. DENIES COMPLAINTS
--- NOTE | 2018-02-14 18:30 | NUR ---
HEARTRATE INCREASED 120-130'S. REPOSITIONED FOR COMFORT, BLANKETS ON. TEMP 99. HEARTRATE IMPROVED 110-120'S. BP STABLE. WILL MONITOR. ATE 50% DINNER. DENIES DISTRESS.
--- NOTE | 2018-02-14 19:57 | NUR ---
ASSUMED CARE OF PT. PT. ALERT AND ORIENTED. CURRENTLY ON RA, RR EVEN AND UNLABORED. PT. ABLE TO REPOSITION SELF IN BED NEEDED. PT. REQUESTING TO HAVE LIGHTS DIMMED AND GO TO SLEEP. TEMP CURRENTLY OF 100.0. PT REFUSING MEDICATIONS, BLANKETS REMVOED. PT. DENIES PAIN AT THIS TIME. HR 110-120S PT DENIES ANY CHEST PAIN OR PRESSURE SALINE LOCKED. CALL LIGHT IN REACH.
--- NOTE | 2018-02-14 23:08 | NUR ---
CALL TO PHYSICIAN REGARDING PT ELEVATED HR PT REMAINS IN AFIB, HR REACHING UP TO 150S AT TIMES. MEDICATION ORDER OBTAINED FOR RATE CONTROL.
--- NOTE | 2018-02-15 02:08 | NUR ---
CARE ASSUMED CARE AND REPORT ASSUMED FROM LUIS GOLDSTEIN. PT SLEEPING AND APPEARS CALM. REMAINS IN AFIB; HR 110-140S. PT GIVEN METOPROLOL 25 MG AT 1230. WILL CONTINUE TO MONITOR.
--- NOTE | 2018-02-15 03:34 | NUR ---
REASSESSMENT PT SITTING UP IN BED DRINKING WATER. NO ACUTE DISTRESS. BP STABLE. TEMP 97.7. REMAINS IN AFIB, HR 110-130. DENIES PAIN AT THIS TIME. SPO2 94-97% ON RA. WILL CONTINUE TO MONITOR.
[2018-02-15 04:31] LABS: International Normalized Ratio 4.66
--- NOTE | 2018-02-15 06:34 | NUR ---
SHIFT SUMMARY PT SLEPT MOST OF SHIFT. REMAINS IN AFIB, BUT HR DECREASED TO 90-115. DENIES PAIN WHEN ASKED. LFA IV INFILTRATED AND NEW ONE INSERTED. BP STABLE AND PT AFEBRILE ENTIRE SHIFT. ANTIBIOTICS INFUSING AT THIS TIME. WILL GIVE BEDSIDE, HANDOFF REPORT TO DAY RN.
[2018-02-15 07:41] LABS: LYMPHOCYTES PERCENT AUTO 7 % (21-46); Mean Corpuscular HGB 29.9 pg (26.0-34.0)
[2018-02-15 07:52] LABS: Bun/Creatinine Ratio 16.7 (12.0-20.0); Calcium, Blood 8.4 mg/dL (8.5-10.1); Creatinine, Blood 1.26 mg/dL (0.60-1.20); Magnesium, Blood 2.1 mg/dL (1.6-2.4); Potassium, Blood 5.1 mmol/L (3.5-5.5)
[2018-02-15 07:53] LABS: BASOPHILS ABSOLUTE AUTO 0.03 K/mm3 (0.00-0.23); BASOPHILS PERCENT AUTO 1 % (0-2); EOSINOPHILS ABSOLUTE AUTO 0.01 K/mm3 (0.00-0.68); EOSINOPHILS PERCENT AUTO 0 % (0-6); Hematocrit 39.3 % (37.0-53.0); Hemoglobin 12.6 g/dL (13.5-17.5); IMMATURE GRAN ABSOLUTE AUTO 0.03 K/mm3 (0.00-0.10); IMMATURE GRAN PERCENT AUTO 1 % (0-1); LYMPHOCYTES ABSOLUTE AUTO 0.45 K/mm3 (0.84-5.20); MONOCYTES ABSOLUTE AUTO 0.77 K/mm3 (0.16-1.47); MONOCYTES PERCENT AUTO 12 % (4-13); Mean Corpuscular HGB Conc 32.1 g/dL (31.5-36.5); Mean Corpuscular Volume 93 fL (80-100); Mean Platelet Volume 12.1 fL (9.1-12.4); NEUTROPHILS ABSOLUTE AUTO 5.36 K/mm3 (1.96-9.15); NEUTROPHILS PERCENT AUTO 80 % (41-73); Platelet Count 132 K/mm3 (150-400); RDW Standard Deviation 54.6 fL (35.1-46.3); Red Blood Cell Count 4.22 M/mm3 (4.30-5.90); White Blood Cell Count 6.65 K/mm3 (4.00-11.30)
--- NOTE | 2018-02-15 08:15 | NUR ---
Initial Assessment: Pt resting in bed. LS diminished with some wheezing in upper lobes. Non-productive, dry cough. HR irregular. Monitor shows afib with BBB. Controlled rate. Pulses palp. Pt denies pain. States that he is feeling ok. Pt sat up in bed to eat some breakfast. Call light in reach. Denies needs.
--- NOTE | 2018-02-15 11:08 | NUR ---
Echocardiogram completed.
--- NOTE | 2018-02-15 17:03 | NUR ---
SHIFT SUMMARY: Pt resting in bed watching TV at this time. Pt has done well this shift. States that he feels like he is breathing well. Still having non-productive cough. VSS throughout shift. Pt states that he is feeling good and that he wants to go home. Explained to PT that he needs to stay for antibiotics. Pt verbalized understanding. Call light in reach. Denies needs. Will report to night rn.
--- NOTE | 2018-02-15 21:14 | NUR ---
PT S/O CALL TRANSFERRED TO ROOM. PT TALKING ON PHONE AND APPEARS COMFORTABLE.
[2018-02-16 03:48] LABS: BASOPHILS ABSOLUTE AUTO 0.04 K/mm3 (0.00-0.23); BASOPHILS PERCENT AUTO 1 % (0-2); EOSINOPHILS ABSOLUTE AUTO 0.04 K/mm3 (0.00-0.68); EOSINOPHILS PERCENT AUTO 1 % (0-6); Hematocrit 37.6 % (37.0-53.0); Hemoglobin 12.2 g/dL (13.5-17.5); IMMATURE GRAN ABSOLUTE AUTO 0.03 K/mm3 (0.00-0.10); IMMATURE GRAN PERCENT AUTO 1 % (0-1); LYMPHOCYTES ABSOLUTE AUTO 0.78 K/mm3 (0.84-5.20); LYMPHOCYTES PERCENT AUTO 12 % (21-46); MONOCYTES ABSOLUTE AUTO 0.66 K/mm3 (0.16-1.47); MONOCYTES PERCENT AUTO 10 % (4-13); Mean Corpuscular HGB 29.6 pg (26.0-34.0); Mean Corpuscular HGB Conc 32.4 g/dL (31.5-36.5); Mean Corpuscular Volume 91 fL (80-100); Mean Platelet Volume 11.3 fL (9.1-12.4); NEUTROPHILS ABSOLUTE AUTO 4.81 K/mm3 (1.96-9.15); NEUTROPHILS PERCENT AUTO 76 % (41-73); Platelet Count 110 K/mm3 (150-400); RDW Coefficient Variation 15.6 % (11.7-14.2); RDW Standard Deviation 52.2 fL (35.1-46.3); Red Blood Cell Count 4.12 M/mm3 (4.30-5.90); White Blood Cell Count 6.36 K/mm3 (4.00-11.30)
[2018-02-16 03:59] LABS: Anion Gap 7 mmol/L (6-16); Blood Urea Nitrogen 27 mg/dL (8-24); Bun/Creatinine Ratio 24.5 (12.0-20.0); CO2, Blood 20 mmol/L (21-32); Calcium, Blood 8.2 mg/dL (8.5-10.1); Chloride, Blood 108 mmol/L (98-108); Glomerular Filtration Rate >60 (60-); Glucose, Blood 134 mg/dL (70-99); Magnesium, Blood 2.2 mg/dL (1.6-2.4); Potassium, Blood 5.3 mmol/L (3.5-5.5); Sodium, Blood 135 mmol/L (136-145)
[2018-02-16 04:00] LABS: International Normalized Ratio 3.42; Prothrombin Time Results 32.9 Sec (9.7-11.5)
--- NOTE | 2018-02-16 05:25 | NUR ---
SHIFT: PT SLEPT MOST OF NOC WAKING EACH TIME RN TO BEDSIDE. PT VSS AND PT WITH NO C/O PAIN OR ANY OTHER DISCOMFORT T/O NOC. PT STATED A FEW TIMES THAT HE JUST WANTS TO GO HOME. PT WITH FLAT AFFECT BUT COOPERATIVE AND FOLLOWS DIRECTIONS. THIS AM PT WITH TACHYPNEA WITH RR 38-40 AND SATS REMAINING AT 99%. OXYGEN VIA N/C OFF WITH PT REMAINING ON OXYMETRY FOR OBSERVATION. WILL CONTINUE TO MONITOR.
--- NOTE | 2018-02-16 07:09 | NUR ---
RESPIRATIONS NORMAL: PT AWAKE. RR 14-18. PT ASKING IF HE'S GOING HOME. PT TEACHING RE SEPSIS AND NEED FOR IV ANTIBIOTICS, PT ROLLED HIS EYES. PT STATED THAT HE UNDESTOOD. REPORT TO LIZ RN TO ASSUME CARE AT THIS TIME.
--- NOTE | 2018-02-16 07:31 | NUR ---
CARE ASSUMED CARE AND REPORT ASSUMED FROM LARISSA PENA RN. PT SLEEPING BUT EASILY AWAKENS FOR SHORT CONVERSATION. REQUESTING TO CONTINUE SLEEPING. DENIES PAIN AT THIS TIME. AFIB, HR 80-110. BP 119/89. SPO2 96% ON RA. DENIES NAUSEA. LUNG SOUNDS CLEAR TO DIMINISHED. TEMP 98.7. CALL LIGHT WITHIN REACH. IV SALINE LOCKED. PTS NOSE AND FOREHEAD IS FLUSHED. WILL CONTINUE TO MONITOR.
--- NOTE | 2018-02-16 11:12 | NUR ---
REASSESSMENT AFTER RECIEVING BEDBATH, PT SAT UP IN CHAIR FOR FEW HOURS AND WATCHED TV AND TALKED ON PHONE. CURRENTLY LAYING IN BED AND WANTING TO NAP. ABLE TO STAND AND AMBULATE WITH MINIMAL ASSIST. DENIES PAIN. VSS. REMAINS IN AFIB, HR 90S. BP STABLE. IV SALINE LOCKED. WILL CONTINUE TO MONITOR.
--- NOTE | 2018-02-16 17:46 | NUR ---
SHIFT SUMMARY PT UP TO RECLINER FOR FEW HOURS THIS AM. RECIEVED BEDBATH AND LINEN CHANGE. SAT UP AND READ NEWSPAPERS FOR FEW HOURS. VISITED WITH PT FOR SHORT TIME. NO COMPLAINTS OF PAIN DURING SHIFT. AFEBRILE ENTIRE SHIFT. REMAINED IN AFIB, HR 80-120S WITH STABLE BP. AMBULATED TO TOILET WITHOUT ASSISTANCE. WILL GIVE BEDSIDE, HANDOFF REPORT TO NUNU RN.
--- NOTE | 2018-02-16 19:57 | NUR ---
Jerauld of Care: Patient A/O x4, sitting upright in bed watching tv. Denies pain, discomfort, SOB, or dyspnea. VSS, heart rhythm shows A-Fibb in the 80's-110. Peripheral IV to rt forearm patent and intact, SL. Using urinal to void in bed without difficulty. Call light in reach, makes needs known. Will continue to monitor for pain, safety, comfort.
--- NOTE | 2018-02-17 06:00 | NUR ---
Shift Summary: Patient slept well throughout shift. Continues to deny pain, discomfort, SOB, or dyspnea throughout shift. Independent in room, ambulates to toilet or sink, adjust own position in bed without difficulty. Heart rhythm continues in A-Fibb, 80's-low 100's, BP stable. Contacted Dr. Cam at start of shift r/t no lab orders for this morning, no new orders received. Flat affect, but calm and cooperative with staff, makes needs known. Will continue to monitor until report to day shift RN.
--- NOTE | 2018-02-17 07:56 | NUR ---
REPORT CALLED TO BRITANY GOLDSTEIN AND WILL RAMESH VAZQUEZ. PT IS ON ISOLATION AND WILL TRANSFER VIA W/C
[2018-02-17 08:36] LABS: Vancomycin, Trough 7.3 ug/mL (5.0-10.0)
[2018-02-17 08:37] LABS: International Normalized Ratio 3.26; Prothrombin Time Results 31.4 Sec (9.7-11.5)
--- NOTE | 2018-02-17 17:22 | NUR ---
SHIFT SUMMARY PT HAS HAD NO ACUTE CHANGES THIS SHIFT, NO COMPLAINTS OF ANY KIND. PT IS BEDRESTING AT THIS TIME, WILL CONT TO MONITOR UNTIL REPORT GIVEN TO NUNU RN.
[2018-02-18 05:22] LABS: International Normalized Ratio 3.35; Prothrombin Time Results 32.2 Sec (9.7-11.5)
--- NOTE | 2018-02-18 05:47 | NUR ---
SHIFT SUMMARY NO CHANGES THIS SHIFT. PT HAS RESTED MOST OF THE NIGHT AND HAS DENIED NEEDS OR PAIN. PT IS HOPING TO BE DC TODAY. ASSESSMENT UNCHANGED, VITALS STABLE. PT INDEPENDENT AND AMBULATORY IN THE ROOM. WILL CONTINUE TO MONITOR AND REPORT TO ONCOMING RN.
[2018-02-18] MEDS ORDERED: ACIDOPHILUS1 EAC1 PO (13:21)
[2018-02-18] MEDS ORDERED: METO25 PO (13:22)
[2018-02-18] MEDS ORDERED: OSEL75CA PO (13:22)
[2018-02-18] MEDS ORDERED: CEPH500 PO (13:23)
--- NOTE | 2018-02-18 13:36 | NUR ---
SHIFT SUMMARY/DC PT HAS HAD NO ACUTE CHANGES THIS SHIFT, NO COMPLAINTS OF ANY KIND. REVIEWED DC INSTRUCTIONS W/PT WHO VERBALIZED UNDERSTANDING. CALLED SIGNIFICANT OTHER AND SON AND LEFT MESSAGES TO NOTIFY OF DC. PT WAS TRANSPORTED VIA W/C TO [place] IN PRIVATE VEHICLE @ 9505.
== END 2018-02-18 13:34 | disposition home or self-care (01) | DRG 871 ==
LOC: ER 01:24 → ERHOLD 01:25 → ICUE 04:17 → MEDS 02-17 08:14
PROVIDERS: Emergency Medicine; Internal Medicine; ADMIT Internal Medicine
DX: A41.2 Sepsis due to unspecified staphylococcus (principal); G93.41 Metabolic encephalopathy; N17.9 Acute kidney failure, unspecified; D68.9 Coagulation defect, unspecified; E11.51 Type 2 diabetes mellitus with diabetic peripheral angiopathy without gangrene; E86.0 Dehydration; R65.20 Severe sepsis without septic shock; I11.0 Hypertensive heart disease with heart failure; I50.9 Heart failure, unspecified; E78.5 Hyperlipidemia, unspecified; J44.9 Chronic obstructive pulmonary disease, unspecified; C44.90 Unspecified malignant neoplasm of skin, unspecified; J10.1 Influenza due to other identified influenza virus with other respiratory manifestations; Z95.1 Presence of aortocoronary bypass graft; I48.2 Chronic atrial fibrillation; Z66 Do not resuscitate
CPT/HCPCS: 36415; 71045; 80048; 80053; 80202; 81001; 82947; 83605; 83735; 83880; 84145; 85025; 85027; 85610; 85651; 87040; 87077; 87086; 87185; 87186; 87804; 93005; 93010; 93306; 94760; 96374; 96375; 99285-25; J1956; J3370; J7030; J7042; J7050

== ENCOUNTER 2018-08-08 09:06 | Inpatient (IN) | payer OTHER, MEDICARE ==
[~2018-08-08] VITALS: Ht 182.9 cm; Wt 76.3 kg
[~2018-08-08 09:06] MED LIST changes: +ACIDOPHILUS1 EAC1 PO; +CEPH500 PO; +FURO40 PO; +LO-DOSE ASPIRIN81 MG PO; +METO25 PO; +OSEL75CA PO; +TIZANIDINE HCL2 MG PO
[2018-08-08 09:30] LABS: PCO2 Arterial 35.2 mmHg (35-45); PO2 Arterial 85.2 mmHg (80-100); pH Blood Arterial 7.41 (7.35-7.45)
[2018-08-08 10:38] LABS: BASOPHILS ABSOLUTE AUTO 0.04 K/mm3 (0.00-0.23); BASOPHILS PERCENT AUTO 0 % (0-2); EOSINOPHILS ABSOLUTE AUTO 0.02 K/mm3 (0.00-0.68); EOSINOPHILS PERCENT AUTO 0 % (0-6); Hematocrit 40.4 % (37.0-53.0); Hemoglobin 12.5 g/dL (13.5-17.5); IMMATURE GRAN ABSOLUTE AUTO 0.09 K/mm3 (0.00-0.10); IMMATURE GRAN PERCENT AUTO 1 % (0-1); LYMPHOCYTES PERCENT AUTO 3 % (21-46); MONOCYTES ABSOLUTE AUTO 0.78 K/mm3 (0.16-1.47); MONOCYTES PERCENT AUTO 8 % (4-13); Mean Corpuscular HGB 27.9 pg (26.0-34.0); Mean Corpuscular HGB Conc 30.9 g/dL (31.5-36.5); Mean Corpuscular Volume 90 fL (80-100); NEUTROPHILS ABSOLUTE AUTO 8.83 K/mm3 (1.96-9.15); NEUTROPHILS PERCENT AUTO 88 % (41-73); Platelet Count 169 K/mm3 (150-400); RDW Coefficient Variation 16.3 % (11.7-14.2); RDW Standard Deviation 53.1 fL (35.1-46.3); Red Blood Cell Count 4.48 M/mm3 (4.30-5.90); White Blood Cell Count 10.06 K/mm3 (4.00-11.30)
[2018-08-08 10:56] LABS: International Normalized Ratio 1.3; Prothrombin Time Results 13.5 Sec (9.7-11.5)
[2018-08-08 11:06] LABS: Ethanol (Alcohol), Blood, Med <3 mg/dL
[2018-08-08 11:12] LABS: Alanine Aminotransfer (ALT/SGP 46 U/L (12-78); Albumin, Blood 3.8 g/dL (3.4-5.0); Alk Phos 153 U/L (50-136); Anion Gap 9 mmol/L (6-16); Aspartate Aminotrans (AST/SGOT 72 U/L (12-37); Bilirubin, Total 1.2 mg/dL (0.1-1.0); Blood Urea Nitrogen 25 mg/dL (8-24); Bun/Creatinine Ratio 17.6 (12.0-20.0); CO2, Blood 26 mmol/L (21-32); Calcium, Blood 9.2 mg/dL (8.5-10.1); Chloride, Blood 103 mmol/L (98-108); Creatinine, Blood 1.42 mg/dL (0.60-1.20); Globulin, Blood 3.8 g/dL (2.2-4.0); Glomerular Filtration Rate 51 (60-); Glucose, Blood 170 mg/dL (70-99); Potassium, Blood 4.2 mmol/L (3.5-5.5); Sodium, Blood 138 mmol/L (136-145); Total Protein, Blood 7.6 g/dL (6.4-8.2)
[2018-08-08] MEDS ORDERED: Glyburide-Metf1 EAC2 PO (13:18)
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
--- NOTE | 2018-08-08 21:30 | NUR ---
SEIZURE PT'S FAMILY OUT IN [place] REPORTING "PT SEIZING." UPON THIS RN ENTERING ROOM, PT AWAKE RESPONSIVE SAYING "WHAT JUST HAPPENED." PUPILS EQUAL AND REACTIVE, PHYSICIAN SURGEON + FOOT STRENGTH EQUAL. PT NOW RESTING IN BED. DR GOODRICH NOTIFIED + NEW ORDERS OBTAINED FOR EEG IN AM. FAMILY AT BEDSIDE. CALL LIGHT WITHIN REACH.
[2018-08-09 03:50] LABS: Source, Urine Clean Catch
[2018-08-09 03:53] LABS: Appearance, Urine Clear (Clear); Bilirubin, Urine 1+ (Neg); Blood, Urine 4+ (Neg); Color, Urine Amber (P-Yellow); Glucose Qualitative, Urine Neg (Neg); Ketones, Urine 1+ (Neg); Leukocyte Esterase, Urine 1+ (Neg); Nitrite, Urine Neg (Neg); Protein, Urine 3+ (Neg); Specific Gravity, Urine 1.015 (1.003-1.022); Urobilinogen, Urine 1+ (Normal)
[2018-08-09 04:01] LABS: Bacteria Many /hpf; Red Blood Cells, Urine 0-2 /hpf (0-2); Squamous Epithelial Cells Few /hpf (Few)
[2018-08-09 04:03] LABS: U Amphetamine Screen Not Detected; U Barbituate Screen Not Detected; U Benzodiazapine Screen Not Detected; U Buprenorphine Screen Not Detected; U Cannabinoids Screen Not Detected; U Cocaine Screen Not Detected; U Methadone Screen Not Detected; U Methamphetamine Screen Not Detected; U Opiates Screen Not Detected; U Oxycodone Screen DETECTED; U Phencyclidine Screen Not Detected; U Propoxyphene Screen Not Detected
--- NOTE | 2018-08-09 17:02 | NUR ---
SHIFT SUMMARY NO ACUTE CHANGES. VSS. NO SEIZURE LIKE ACTIVITY THIS SHIFT. EEG DONE TODAY. PT GETTING 1 ROXICODONE FOR PAIN PRN. ENCOURAGING DEEP BREATHING AND I/S USE. WOUND CARE PER ORDERS COMPLETE. PT USING URINAL TO VOID. ALLYSON PO INTAKE. ENCOURAGING TO MOVE IN BED. PLAN IS FOR ANOTHER CHEST XRAY TOMORROW. PT USES CALL LIGHT APPROPRIATELY.
[2018-08-10 04:49] LABS: Hematocrit 33.9 % (37.0-53.0); Hemoglobin 10.6 g/dL (13.5-17.5); Mean Corpuscular HGB 27.5 pg (26.0-34.0); Mean Corpuscular HGB Conc 31.3 g/dL (31.5-36.5); Mean Corpuscular Volume 88 fL (80-100); Mean Platelet Volume 10.8 fL (9.1-12.4); Platelet Count 149 K/mm3 (150-400); RDW Coefficient Variation 16.2 % (11.7-14.2); RDW Standard Deviation 52.2 fL (35.1-46.3); Red Blood Cell Count 3.85 M/mm3 (4.30-5.90); White Blood Cell Count 9.73 K/mm3 (4.00-11.30)
--- NOTE | 2018-08-10 04:49 | NUR ---
SHIFT SUMMARY: PT RESTING MOST OF SHIFT. C/O PAIN TO LEFT CHEST AND UPPER BACK. NEW ORDERS FOR OXY 5MG Q4. HR TACHY RANGING FROM 100-106. A/FIB WITH BBB PER BLOOD DONOR UNIT ASSISTANT. O2 SATS STABLE ON RA. PT DYSPNEIC WITH DIMINISHED LUNG SOUNDS T/O. ENCOURAGED TO DEEP BREATH AND USE INSCENTIVE SPIROMETER. PT ALSO ENCOURAGED TO DRINK FLUIDS. TOTAL URINE OUTPUT 200 ML. BLADDER SCAN SHOWED 203 ML. PT SITTING IN CHAIR FOR PART OF SHIFT. DRESSING TO LEFT FOREARM IS INTACT WITH SMALL AMT OF BLOODY DRAINAGE. PT FORGETFUL AT TIMES AND NEEDS TO BE REMINDED OF SURROUNDINGS AND EVENT THAT TOOK PLACE. PT EASILY REORIENTS. BED ALARM ON FOR SAFETY.
[2018-08-10 05:09] LABS: Calcium, Blood 8.9 mg/dL (8.5-10.1); Creatinine, Blood 1.86 mg/dL (0.60-1.20); Magnesium, Blood 2.4 mg/dL (1.6-2.4); Potassium, Blood 4.5 mmol/L (3.5-5.5)
[2018-08-10 06:44] LABS: PCO2 Arterial 33.8 mmHg (35-45); PO2 Arterial 86.2 mmHg (80-100); pH Blood Arterial 7.35 (7.35-7.45)
[2018-08-10 06:58] LABS: BASOPHILS ABSOLUTE AUTO 0.02 K/mm3 (0.00-0.23); BASOPHILS PERCENT AUTO 0 % (0-2); EOSINOPHILS ABSOLUTE AUTO 0.02 K/mm3 (0.00-0.68); EOSINOPHILS PERCENT AUTO 0 % (0-6); Hemoglobin 10.6 g/dL (13.5-17.5); IMMATURE GRAN ABSOLUTE AUTO 0.15 K/mm3 (0.00-0.10); IMMATURE GRAN PERCENT AUTO 1 % (0-1); LYMPHOCYTES ABSOLUTE AUTO 1.51 K/mm3 (0.84-5.20); LYMPHOCYTES PERCENT AUTO 14 % (21-46); MONOCYTES ABSOLUTE AUTO 1.41 K/mm3 (0.16-1.47); MONOCYTES PERCENT AUTO 13 % (4-13); Mean Corpuscular HGB 27.7 pg (26.0-34.0); Mean Corpuscular HGB Conc 31.2 g/dL (31.5-36.5); Mean Corpuscular Volume 89 fL (80-100); Mean Platelet Volume 10.7 fL (9.1-12.4); NEUTROPHILS ABSOLUTE AUTO 8.05 K/mm3 (1.96-9.15); NEUTROPHILS PERCENT AUTO 72 % (41-73); NRBC ABSOLUTE 0.02 K/mm3 (0.00-0.02); NRBC Auto 0.2 /100 WBC (0.0-0.2); Platelet Count 162 K/mm3 (150-400); RDW Coefficient Variation 16.2 % (11.7-14.2); RDW Standard Deviation 52.7 fL (35.1-46.3); Red Blood Cell Count 3.83 M/mm3 (4.30-5.90); White Blood Cell Count 11.16 K/mm3 (4.00-11.30)
[2018-08-10 07:17] LABS: Magnesium, Blood 2.5 mg/dL (1.6-2.4)
[2018-08-10 07:20] LABS: Albumin, Blood 3.3 g/dL (3.4-5.0); Albumin/Globulin Ratio 0.9 (0.8-1.8); Bilirubin, Total 1.1 mg/dL (0.1-1.0); Bun/Creatinine Ratio 27.7 (12.0-20.0); Calcium, Blood 8.6 mg/dL (8.5-10.1); Creatinine, Blood 1.91 mg/dL (0.60-1.20); Globulin, Blood 3.6 g/dL (2.2-4.0); Phosphorus, Blood 4.1 mg/dL (2.5-4.9); Total Protein, Blood 6.9 g/dL (6.4-8.2)
[2018-08-10 07:22] LABS: International Normalized Ratio 1.44; Prothrombin Time Results 14.8 Sec (9.7-11.5)
--- NOTE | 2018-08-10 07:34 | NUR ---
PER TRANSPORTATION EQUIPMENT PAINTER, AT APPROX 0618, PT WAS SITTING UP IN BED, BECAME UNRESPONSIVE AND BEGAN CONVULSING. SEIZURE TIME OF 30 SEC. NOTIFIED BY AUTOMATIC QUILLING MACHINE OPERATOR OF HR >300. AT APPROX 0624, PT NOT BREATHING, ABSENT PULSE. COMPRESSIONS BEGAN AT 0624 AND ENDED AT 0630 WHEN PT BECAME RESPONSIVE. RADIAL PULSE PALPABLE. PT BREATHING ON OWN. DR. SEGURA IN ROOM AT THIS TIME. CODE BLUE BUNDLE LABS ORDERED. EKG COMPLETED. PT TRANSFERED TO ICU AT APPROX 0644.
[2018-08-10 08:47] LABS: Source, Urine Catheter
[2018-08-10 09:05] LABS: Bilirubin, Urine Neg (Neg); Blood, Urine 3+ (Neg); Glucose Qualitative, Urine Neg (Neg); Ketones, Urine 1+ (Neg); Leukocyte Esterase, Urine Neg (Neg); Nitrite, Urine Neg (Neg); Protein, Urine 3+ (Neg); Urobilinogen, Urine NORM (Normal)
[2018-08-10 09:06] LABS: Appearance, Urine Clear (Clear); Color, Urine Yellow (P-Yellow)
[2018-08-10 09:32] LABS: Bacteria Few /hpf; Mucus Light (0-Heavy); Squamous Epithelial Cells Few /hpf (Few)
[2018-08-10 09:33] LABS: Amorphous Mod (0-Heavy)
--- NOTE | 2018-08-10 10:31 | NUR ---
Echocardiogram completed.
--- NOTE | 2018-08-10 12:41 | NUR ---
Initial Visit: Consultation recieved for cardiac system, medically fragile, advanced care planning, and new diagnois. Consult is requesting palliative to also identify a decision maker in the case of pt not being able to communicate wishes. Pt is being placed on bipap. Dr. Hinds has been in the room to speak to the significant other, then to speak with the daughter, Iram. Spoke with Iram. She states that most of the family has not been involved with the pt for several years. "He has burned his bridges with everyone, over and over." She states that her brother is the POA. Carey does not have documentation to support this, however, it appears that pt's son will be the POA. If POA papers are not available or not found, the pt's children will make decisions, usually the oldest child or the children decide together. Iram states that her dad is adamant that he remain a full code. Son will be here this afternoon, he also lives locally, as Iram does. Significant other has been with the pt for only 3 years. She does not have decision making power unless the pt verbalizes this and appoints her. He could do this verbally with witnesses in the room and documentation of that statement. Spoke directly to the pt. He is on bipap, but he opens his eyes to verbal stimulation. He is making eye contact. I ask him if he wants CPR again if he needs to be resusitated. He states "yes," and nods his head. I ask if he would like intubation if needed. He nods his head again. This is witnessed by daughter, Iram, as well. She is prepared to honor his wishes and will advocate for him. He will remain FULL code for now. He is alert and oriented to situation, place. Iram states that he hates needles and fears them. She also states that he is very fearful of and that he is likely making these decisions because of that fear. Discussed beater and pulper feeder visit. She states that this would not help, as he is not episcopal. Instructed that beater and pulper feeder does not need or force pts to talk about evangelical; beater and pulper feeder may be able to mortgage counselor pt to aleviate fears and investigate the source of his fear. She agrees that this will be helpful and is ok with beater and pulper feeder visit. She is aware of her father's potential decline. With his comorbidities and current issues, I told her that he may not survive this hospitalization. She verbalizes understanding. She states, "if it were me in his position, I would never want CPR." Call placed to Kym. Updated on conversations and pt's condition. She will follow up with pt. Conferenced also with nurse Gabino.
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
--- NOTE | 2018-08-10 18:35 | NUR ---
PT GIVEN SHORT BREAK FROM BIPAP WHILE OBTAINING FENTANYL IVP. ORAL CARE DONE. PT CONT TO HAVE YOLIE-LEWIS BREATHING PATTERN AND RETURNED TO BIPAP. VS ARE NOTED. AMIODARONE GTT DEC. TO 0.5MG AT 16.6 ML. I/O NOTED. L WRIST FOREARM BLEEDING THROUGH AND WILL NEED TO BE CHANGED.
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
--- NOTE | 2018-08-11 00:34 | NUR ---
PATIENT SLEEPING SOUNDLY UPON ENTERING ROOM. PATIENT STATES PAIN IS MANAGEABLE AT THIS TIME. AFEBRILE. PATIENT REMAINS SATTING WELL ON SAME BIPAP AND NC SETTINGS. UPPER LUNG LOBES CLEAR, RML AND RLL CLEAR, LLL RUB NOTED. YOLIE LEWIS RRS STILL NOTED. PATIENT REMAINS IN A. FIB WITH BBB AND FREQUENT PVCS. HR 80S TO LOW 100S. BP STABLE. NO OTHER ACUTE CHANGES TO NOTE ON AT THIS TIME. WILL CONTINUE TO MONITOR.
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
[2018-08-11 04:45] LABS: BASOPHILS ABSOLUTE AUTO 0.02 K/mm3 (0.00-0.23); BASOPHILS PERCENT AUTO 0 % (0-2); EOSINOPHILS ABSOLUTE AUTO 0.03 K/mm3 (0.00-0.68); EOSINOPHILS PERCENT AUTO 0 % (0-6); Hematocrit 28.6 % (37.0-53.0); Hemoglobin 9.1 g/dL (13.5-17.5); IMMATURE GRAN ABSOLUTE AUTO 0.06 K/mm3 (0.00-0.10); IMMATURE GRAN PERCENT AUTO 1 % (0-1); LYMPHOCYTES ABSOLUTE AUTO 0.46 K/mm3 (0.84-5.20); LYMPHOCYTES PERCENT AUTO 5 % (21-46); MONOCYTES ABSOLUTE AUTO 1.13 K/mm3 (0.16-1.47); MONOCYTES PERCENT AUTO 13 % (4-13); Mean Corpuscular HGB 28.1 pg (26.0-34.0); Mean Corpuscular HGB Conc 31.8 g/dL (31.5-36.5); Mean Corpuscular Volume 88 fL (80-100); Mean Platelet Volume 10.7 fL (9.1-12.4); NEUTROPHILS ABSOLUTE AUTO 7.01 K/mm3 (1.96-9.15); NEUTROPHILS PERCENT AUTO 81 % (41-73); Platelet Count 138 K/mm3 (150-400); RDW Standard Deviation 52.3 fL (35.1-46.3); Red Blood Cell Count 3.24 M/mm3 (4.30-5.90); White Blood Cell Count 8.71 K/mm3 (4.00-11.30)
[2018-08-11 05:00] LABS: International Normalized Ratio 1.82; Prothrombin Time Results 18.3 Sec (9.7-11.5)
[2018-08-11 05:03] LABS: Albumin, Blood 2.8 g/dL (3.4-5.0); Albumin/Globulin Ratio 0.9 (0.8-1.8); Bilirubin, Total 1.2 mg/dL (0.1-1.0); Bun/Creatinine Ratio 32.6 (12.0-20.0); Calcium, Blood 8.3 mg/dL (8.5-10.1); Creatinine, Blood 1.81 mg/dL (0.60-1.20); Globulin, Blood 3.1 g/dL (2.2-4.0); Magnesium, Blood 2.4 mg/dL (1.6-2.4); Phosphorus, Blood 3.8 mg/dL (2.5-4.9); Potassium, Blood 4.2 mmol/L (3.5-5.5); Total Protein, Blood 5.9 g/dL (6.4-8.2)
--- NOTE | 2018-08-11 07:14 | NUR ---
SHIFT SUMMARY PATIENT REMAINED MOSTLY ALERT AND ORIENTED T/O SHIFT, FORGETFUL AT TIMES, ESPECIALLY WHEN FIRST WAKING UP. PATIENT REMAINED WEAK, BUT MOSTLY DUE TO PAIN FROM TRAUMA. PATIENT RECEIVED PRN FENTANYL FOR PAIN AND REPORTED GOOD RELIEF WITH. PATIENT REMAINED AFEBRILE. PATIENT REMAINED SATTING 90% AND GREATER ON BIPAP 8/5, RATE OF 10, FIO2 25 TO 30%. PATIENT HAD OCCASIONAL, MOIST, NONPRODUCTIVE COUGH. RUB NOTED IN LLL LOBE. PATIENT CONTINUED TO HAVE YOLIE-LEWIS RRS. PATIENT REMAINED IN A. FIB WITH BBB AND FREQUENT PVCS. HR 60S TO LOW 100S. SBP 80S TO LOW 100S. PULSES REMAIN DOPPLER IN FEET. PATIENT DID NOT HAVE BM THIS SHIFT. PATIENT REPORTED LAST BM ON 08/06. PATIENT REMAINED NPO. SABA REMAINED DRAINING YECENIA COLORED URINE. WOUNDS WERE CLEANSED AND REDRESSED THIS SHIFT. NS REMAINS INFUSING AT 50 MLS/ HOUR AND AMIODARONE AT 0.5 MG/ MINUTE. PATIENT HAS NO SIGNS OF PAIN AT THIS TIME. BED LOW, CALL LIGHT IN REACH. REPORT HAS BEEN GIVEN TO ASSUMING DAY SHIFT NURSE.
--- NOTE | 2018-08-11 08:00 | NUR ---
ASSUMED CARE PT. ALERT AND ORIENTED THIS AM. BREAK FROM BIPAP, PLACED ON 3LNC. PT. REPORTS PAIN "EVERYWHERE", RESTLESS IN BED. VERY WEAK COUGH, NON PRODUCTIVE NOTED. ORAL CARE PROVIDED. PT. MOANING IN BED. MED FOR PAIN WITH 25 MCG AT THIS TIME. PT. ABLE TO PARR. PT. HAS BRUISING T/O BODY AND VERY PAINFUL WITH ANY MOVEMENT. PT. ARMS REDRESSED PER FIBREGLASS LAMINATOR RN, DRESSINGS CDI AT THIS TIME. SABA IN PLACE DRAINING TO GRAVITY. VSS.REMAINS ON AMIO GTT AT 0.5MG/MIN PER ORDER. CALL LIGHT IN REACH.
--- NOTE | 2018-08-11 08:30 | NUR ---
PAIN PT REQUESTING ADDITIONAL PAIN MEDICATION. PT HOLDING CHEST WHILE COUGHING AND MOANING. PT. REPORTS SHARP PAIN. MED WITH ADDITIONAL 25MCG FENTANYL.
--- NOTE | 2018-08-11 11:11 | NUR ---
DR. SUBRAMANIAN IN TO TALK WITH PT AT THIS TIME. PT. SIGNIFICANT OTHER REMAINS AT BEDSIDE. VSS
--- NOTE | 2018-08-11 13:23 | NUR ---
PLANS FOR PT TO TRANFER TO [facility]. ACCEPTING PHYSICIAN PER DR. SUBRAMANIAN. COBRA TRANSFER PACKET PREPARED.
--- NOTE | 2018-08-11 14:47 | NUR ---
TRANSFER PT. TAKEN VIA AMBULANCE TO [facility] IN [place]. PT. S/O UPDATED ON TRANSFER AND ROOM CHANGE. PT. SON CALLED WELL PER REQUEST. PT. BELONGINGS SENT WITH PT FOR TRANSER. REPORT CALLED TO EKTA GOLDSTEIN. PT. VSS UPON TRANSFER.
== END 2018-08-11 14:45 | disposition short-term general hospital (02) | DRG 199 ==
LOC: ER 09:06 → SURS 09:07 → ICUW 08-10 07:16
PROVIDERS: Emergency Medicine; Hospitalist; Internal Medicine; Internal Medicine Critical Care Medicine; ADMIT Surgery
PROC: 5A12012 Performance of Cardiac Output, Single, Manual (ICD-10-PCS; principal; 2018-08-10)
PROC: 02HV33Z Insertion of Infusion Device into Superior Vena Cava, Percutaneous Approach (ICD-10-PCS; 2018-08-10)
PROC: 5A09357 Assistance with Respiratory Ventilation, Less than 24 Consecutive Hours, Continuous Positive Airway Pressure (ICD-10-PCS; 2018-08-10)
DX: S27.2XXA Traumatic hemopneumothorax, initial encounter (principal); I49.01 Ventricular fibrillation; I46.2 Cardiac arrest due to underlying cardiac condition; S22.5XXA Flail chest, initial encounter for closed fracture; S32.009A Unspecified fracture of unspecified lumbar vertebra, initial encounter for closed fracture; S22.20XA Unspecified fracture of sternum, initial encounter for closed fracture; I13.0 Hypertensive heart and chronic kidney disease with heart failure and stage 1 through stage 4 chronic kidney disease, or unspecified chronic kidney disease; R06.3 Periodic breathing; S22.32XA Fracture of one rib, left side, initial encounter for closed fracture; V89.2XXA Person injured in unspecified motor-vehicle accident, traffic, initial encounter; Y92.411 Interstate highway as the place of occurrence of the external cause; Z79.84 Long term (current) use of oral hypoglycemic drugs; R40.2412 Glasgow coma scale score 13-15, at arrival to emergency department; Z87.891 Personal history of nicotine dependence; S51.812A Laceration without foreign body of left forearm, initial encounter; Z79.01 Long term (current) use of anticoagulants; E11.51 Type 2 diabetes mellitus with diabetic peripheral angiopathy without gangrene; I48.2 Chronic atrial fibrillation; E78.5 Hyperlipidemia, unspecified; M19.90 Unspecified osteoarthritis, unspecified site; Z79.82 Long term (current) use of aspirin; J44.9 Chronic obstructive pulmonary disease, unspecified; R56.9 Unspecified convulsions; Z95.2 Presence of prosthetic heart valve; I50.9 Heart failure, unspecified; N18.3 Chronic kidney disease, stage 3 (moderate); E11.22 Type 2 diabetes mellitus with diabetic chronic kidney disease; I25.10 Atherosclerotic heart disease of native coronary artery without angina pectoris; I25.5 Ischemic cardiomyopathy; Z95.5 Presence of coronary angioplasty implant and graft; I72.3 Aneurysm of iliac artery
CPT/HCPCS: 36415; 36569; 36600; 51702; 70450; 71045; 71046; 71250; 71260; 72125; 72170; 74177; 80048; 80053; 81001; 82330; 82803; 82947; 83605; 83690; 83735; 84100; 84484; 85025; 85027; 85610; 85730; 86850; 86900; 86901; 87086; 93005; 93010; 93308; 93321; 94660; 95819; 96374; 99285-25; C1751; G0378; G0480; J0282; J1265; J1953; J2370; J3010; J7030; J7060; Q9967

== ENCOUNTER 2018-09-04 11:24 | Emergency (ER) | payer MEDICARE, OTHER ==
[~2018-09-04] VITALS: Ht 180.3 cm; Wt 81.2 kg
[2018-09-04] MEDS ORDERED: CLOP75 PO (11:35)
[2018-09-04] MEDS ORDERED: LISI5 PO (11:35)
[2018-09-04] MEDS ORDERED: METO50ER PO (11:36)
[2018-09-04] MEDS ORDERED: SPIR25 PO (11:36)
[2018-09-04] MEDS ORDERED: Amiodarone HCl200 MG PO (11:37)
[2018-09-04] MEDS ORDERED: TAMS.4ER PO (11:37)
[2018-09-04 11:51] LABS: BASOPHILS ABSOLUTE AUTO 0.03 K/mm3 (0.00-0.23); BASOPHILS PERCENT AUTO 0 % (0-2); EOSINOPHILS PERCENT AUTO 3 % (0-6); Hematocrit 34.5 % (37.0-53.0); Hemoglobin 10.1 g/dL (13.5-17.5); IMMATURE GRAN ABSOLUTE AUTO 0.03 K/mm3 (0.00-0.10); IMMATURE GRAN PERCENT AUTO 0 % (0-1); LYMPHOCYTES ABSOLUTE AUTO 0.35 K/mm3 (0.84-5.20); LYMPHOCYTES PERCENT AUTO 5 % (21-46); MONOCYTES ABSOLUTE AUTO 0.67 K/mm3 (0.16-1.47); MONOCYTES PERCENT AUTO 9 % (4-13); Mean Corpuscular HGB 27.5 pg (26.0-34.0); Mean Corpuscular HGB Conc 29.3 g/dL (31.5-36.5); Mean Corpuscular Volume 94 fL (80-100); Mean Platelet Volume 10.2 fL (9.1-12.4); NEUTROPHILS ABSOLUTE AUTO 5.81 K/mm3 (1.96-9.15); NEUTROPHILS PERCENT AUTO 82 % (41-73); Platelet Count 158 K/mm3 (150-400); RDW Coefficient Variation 19.1 % (11.7-14.2); RDW Standard Deviation 65.4 fL (35.1-46.3); Red Blood Cell Count 3.67 M/mm3 (4.30-5.90); White Blood Cell Count 7.09 K/mm3 (4.00-11.30)
[2018-09-04 12:14] LABS: Albumin/Globulin Ratio 0.9 (0.8-1.8); Bilirubin, Total 0.6 mg/dL (0.1-1.0); Bun/Creatinine Ratio 11.6 (12.0-20.0); Calcium, Blood 8.4 mg/dL (8.5-10.1); Creatinine, Blood 1.46 mg/dL (0.60-1.20); Globulin, Blood 3.5 g/dL (2.2-4.0); Potassium, Blood 4.3 mmol/L (3.5-5.5); Total Protein, Blood 6.5 g/dL (6.4-8.2)
[2018-09-04 16:15] LABS: International Normalized Ratio 1.53; Prothrombin Time Results 15.6 Sec (9.7-11.5)
== END 2018-09-04 17:12 | disposition home or self-care (01) ==
LOC: ER 11:24
PROVIDERS: Emergency Medicine
DX: R53.1 Weakness (principal); R33.9 Retention of urine, unspecified; R60.0 Localized edema; Z88.0 Allergy status to penicillin; Z88.7 Allergy status to serum and vaccine; Z79.899 Other long term (current) drug therapy; E11.9 Type 2 diabetes mellitus without complications; I11.0 Hypertensive heart disease with heart failure; I50.9 Heart failure, unspecified; E78.5 Hyperlipidemia, unspecified; I48.91 Unspecified atrial fibrillation
CPT/HCPCS: 36415; 51798; 71046; 80053; 82947; 83880; 85025; 85610; 93005; 93010; 96374; 99285-25; J7799

== ENCOUNTER 2018-09-13 02:16 | Observation (INO) | payer MEDICARE, OTHER ==
[~2018-09-13] VITALS: Ht 180.3 cm; Wt 86.2 kg
[~2018-09-13 02:16] MED LIST changes: +Amiodarone HCl200 MG PO; +CLOP75 PO; +METO50ER PO; +TAMS.4ER PO
[2018-09-13] MEDS ORDERED: WARF2.5 PO (02:51)
[2018-09-13 02:57] LABS: BASOPHILS ABSOLUTE AUTO 0.05 K/mm3 (0.00-0.23); BASOPHILS PERCENT AUTO 1 % (0-2); EOSINOPHILS ABSOLUTE AUTO 0.38 K/mm3 (0.00-0.68); EOSINOPHILS PERCENT AUTO 5 % (0-6); Hematocrit 32.7 % (37.0-53.0); Hemoglobin 9.8 g/dL (13.5-17.5); IMMATURE GRAN ABSOLUTE AUTO 0.03 K/mm3 (0.00-0.10); IMMATURE GRAN PERCENT AUTO 0 % (0-1); LYMPHOCYTES ABSOLUTE AUTO 0.68 K/mm3 (0.84-5.20); LYMPHOCYTES PERCENT AUTO 9 % (21-46); MONOCYTES ABSOLUTE AUTO 1.02 K/mm3 (0.16-1.47); MONOCYTES PERCENT AUTO 13 % (4-13); Mean Corpuscular HGB 27.8 pg (26.0-34.0); Mean Corpuscular Volume 93 fL (80-100); Mean Platelet Volume 9.8 fL (9.1-12.4); NEUTROPHILS ABSOLUTE AUTO 5.65 K/mm3 (1.96-9.15); NEUTROPHILS PERCENT AUTO 72 % (41-73); Platelet Count 178 K/mm3 (150-400); RDW Coefficient Variation 18.4 % (11.7-14.2); RDW Standard Deviation 62.7 fL (35.1-46.3); Red Blood Cell Count 3.52 M/mm3 (4.30-5.90); White Blood Cell Count 7.81 K/mm3 (4.00-11.30)
[2018-09-13 03:16] LABS: Albumin, Blood 3.2 g/dL (3.4-5.0); Albumin/Globulin Ratio 0.9 (0.8-1.8); Bilirubin, Total 0.6 mg/dL (0.1-1.0); Bun/Creatinine Ratio 10.4 (12.0-20.0); Calcium, Blood 8.3 mg/dL (8.5-10.1); Creatinine, Blood 1.44 mg/dL (0.60-1.20); Globulin, Blood 3.4 g/dL (2.2-4.0); Total Protein, Blood 6.6 g/dL (6.4-8.2); Troponin I 0.037 ng/mL (0.000-0.040)
[2018-09-13 04:03] LABS: Prothrombin Time Results 46.9 Sec (9.7-11.5)
[2018-09-13 04:05] LABS: International Normalized Ratio 5.13
--- NOTE | 2018-09-13 06:46 | NUR ---
0635 pt admitted to room 332 per cart from ER, olson draining clear fluid, emptied 1250ml upon arrival.
--- NOTE | 2018-09-13 08:00 | NUR ---
SPOKE TO DR TYLER, BP 99/77, P 82 ORDRES HOLD ALDACTONE, ZESTRIL, FLOMAX. TODAY. CHANGE LASIX T O 60 MG
--- NOTE | 2018-09-13 08:12 | NUR ---
CALLED TO CLARIFY LASIX. DR CASTILLO WANTS DOSE NOON TODAY. THEN CHANGE TO DAILY AM INSTEAD OF BID.
--- NOTE | 2018-09-13 11:12 | NUR ---
PT PLEASANT COOP QUIET. RETIRED POLICE. STATES NO PAIN. RIBS AND SIDE BRUISED FROM PRIOR CPR LAST MO. UPON FURTHER PROBING. PAIN MED WOULD BE HELPFUL. WILL CHECK. H/R REG, NO MURMER NOTED. PACER RANJAN CELIS. PE TELE FULLY PACED AT 77, LUNGS CLEAR, RESP EASY, UNLABORED. ON R.A. BT X4 LAST BM YEST. VOIDS SABA CATH. CLEAR YELLOW FLUID. DISCUSSED FLUID OUT WITH DR CASTILLO. CONTINUE LASIX DAILY. 1 ASST WITH FWW. BED IN LOW POSITION,, CALL LITE IN REACH, CALLS APPROP
[2018-09-13 11:17] LABS: BASOPHILS ABSOLUTE AUTO 0.05 K/mm3 (0.00-0.23); BASOPHILS PERCENT AUTO 1 % (0-2); EOSINOPHILS ABSOLUTE AUTO 0.31 K/mm3 (0.00-0.68); EOSINOPHILS PERCENT AUTO 5 % (0-6); Hematocrit 35.1 % (37.0-53.0); Hemoglobin 10.3 g/dL (13.5-17.5); IMMATURE GRAN ABSOLUTE AUTO 0.02 K/mm3 (0.00-0.10); IMMATURE GRAN PERCENT AUTO 0 % (0-1); LYMPHOCYTES ABSOLUTE AUTO 0.58 K/mm3 (0.84-5.20); LYMPHOCYTES PERCENT AUTO 9 % (21-46); MONOCYTES ABSOLUTE AUTO 0.76 K/mm3 (0.16-1.47); MONOCYTES PERCENT AUTO 12 % (4-13); Mean Corpuscular HGB 27.6 pg (26.0-34.0); Mean Corpuscular HGB Conc 29.3 g/dL (31.5-36.5); Mean Corpuscular Volume 94 fL (80-100); NEUTROPHILS ABSOLUTE AUTO 4.84 K/mm3 (1.96-9.15); NEUTROPHILS PERCENT AUTO 74 % (41-73); Platelet Count 157 K/mm3 (150-400); RDW Coefficient Variation 18.4 % (11.7-14.2); RDW Standard Deviation 63.5 fL (35.1-46.3); Red Blood Cell Count 3.73 M/mm3 (4.30-5.90); White Blood Cell Count 6.56 K/mm3 (4.00-11.30)
[2018-09-13 11:38] LABS: Albumin, Blood 3.2 g/dL (3.4-5.0); Albumin/Globulin Ratio 0.9 (0.8-1.8); Bilirubin, Total 0.6 mg/dL (0.1-1.0); Bun/Creatinine Ratio 10.4 (12.0-20.0); Calcium, Blood 8.4 mg/dL (8.5-10.1); Creatinine, Blood 1.35 mg/dL (0.60-1.20); Globulin, Blood 3.5 g/dL (2.2-4.0); Potassium, Blood 3.6 mmol/L (3.5-5.5); Total Protein, Blood 6.7 g/dL (6.4-8.2); Troponin I 0.035 ng/mL (0.000-0.040)
--- NOTE | 2018-09-13 12:09 | NUR ---
CALLED DR TYLER RE PAIN IN ROBS. OKAYED FENTANYL AND TYLENOL. ORDRES PENDING
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
--- NOTE | 2018-09-13 17:44 | NUR ---
PT RUBINA DIAZOP A/O. DENIES PAIN THIS AFT AFTER TYLENOL. STATES RETIRED POLICE OFCR. HAS RECEIVED EVAL FROM PT/OT. WALKED TO BATHROOM. PENDING VISIT FROM SIG OTHER THIS HOLLY. NO OTHER CONCERNS AT THIS TIME. BED IN LOW POSITION, CALL LITE IN REACH, CALLS AP PROP
--- NOTE | 2018-09-13 20:14 | NUR ---
PT EXPRESSED DESIRE TO BE A FULL CODE TO THIS NURSE. THIS NURSE CALLED NEIL CIFUENTES NP AND ADVISED OF PATIENTS WISHES TO BE FULL CODE WITH ORDERS RECEIVED. DNR STATUS CANCELLED.
[2018-09-13 20:27] LABS: Troponin I 0.041 ng/mL (0.000-0.040)
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
[2018-09-14 05:12] LABS: BASOPHILS ABSOLUTE AUTO 0.05 K/mm3 (0.00-0.23); BASOPHILS PERCENT AUTO 1 % (0-2); EOSINOPHILS ABSOLUTE AUTO 0.42 K/mm3 (0.00-0.68); EOSINOPHILS PERCENT AUTO 7 % (0-6); Hematocrit 33.1 % (37.0-53.0); IMMATURE GRAN ABSOLUTE AUTO 0.02 K/mm3 (0.00-0.10); IMMATURE GRAN PERCENT AUTO 0 % (0-1); LYMPHOCYTES ABSOLUTE AUTO 0.62 K/mm3 (0.84-5.20); LYMPHOCYTES PERCENT AUTO 10 % (21-46); MONOCYTES ABSOLUTE AUTO 0.79 K/mm3 (0.16-1.47); MONOCYTES PERCENT AUTO 13 % (4-13); Mean Corpuscular HGB 27.5 pg (26.0-34.0); Mean Corpuscular HGB Conc 30.2 g/dL (31.5-36.5); Mean Corpuscular Volume 91 fL (80-100); Mean Platelet Volume 9.7 fL (9.1-12.4); NEUTROPHILS ABSOLUTE AUTO 4.31 K/mm3 (1.96-9.15); NEUTROPHILS PERCENT AUTO 69 % (41-73); Platelet Count 166 K/mm3 (150-400); RDW Coefficient Variation 18.1 % (11.7-14.2); RDW Standard Deviation 60.7 fL (35.1-46.3); Red Blood Cell Count 3.63 M/mm3 (4.30-5.90); White Blood Cell Count 6.21 K/mm3 (4.00-11.30)
[2018-09-14 05:32] LABS: Prothrombin Time Results 45.3 Sec (9.7-11.5)
[2018-09-14 05:55] LABS: Albumin, Blood 2.8 g/dL (3.4-5.0); Albumin/Globulin Ratio 0.8 (0.8-1.8); Bilirubin, Total 0.6 mg/dL (0.1-1.0); Bun/Creatinine Ratio 10.9 (12.0-20.0); Calcium, Blood 8.2 mg/dL (8.5-10.1); Creatinine, Blood 1.56 mg/dL (0.60-1.20); Globulin, Blood 3.3 g/dL (2.2-4.0); Potassium, Blood 3.5 mmol/L (3.5-5.5); Total Protein, Blood 6.1 g/dL (6.4-8.2)
[2018-09-14 06:00] LABS: International Normalized Ratio 4.94
--- NOTE | 2018-09-14 07:40 | NUR ---
PT PLEASANT COOP A/O. RETIRED POLICE OFCR. DENIES PAIN, ENCOURAGED TO DEEP BREATHE AND COUGH. HR REG, NO MURMER NOTED. PER TELE: 100% PACED AT 82. LUNGS CLEAR, EXCEPT LOW RT LIGHT CRACKLES. ON R/A. RESP LIGHT EASY. NOT DEEP BREATHING. ENCOURAGED. RECEIVING LASIX. BT X4 LAST BM YEST. VOIDS PER SABA CATH. LIGHT PINK FLUID FLOWING. PACER IN LUCW. RECENT. CDI SCAR. RIBS BRUISING. MOSTLY ON LEFT. PT STATES SEVERAL BROKEN RIBS FROM CPR LAST MONTH. L ARM SCAB, CDI. BED IN LOW POSITION, CALL LITE IN REACH, CALLS APPROP
[2018-09-14] MEDS ORDERED: POTA10T PO (10:19)
[2018-09-14] MEDS ORDERED: LEVOFLOXACIN750 MG PO (10:19)
[2018-09-14] MEDS ORDERED: FURO40 PO (12:50)
--- NOTE | 2018-09-14 13:59 | NUR ---
DISCHARGE REVIEWED WITH PT AND FRIEND. PT VERBALIZED UNDERSTANDING OF MEDS AND INSTRUCTIONS. IV PULLED INTACT. TELE REMOVED. PT WHEELED TO DOOR BY ESCORT AT 1402
== END 2018-09-14 14:02 | disposition home or self-care (01) ==
LOC: ER 02:16 → MEDS 02:17 → ER 05:51 → MEDS 05:51 → ENPENDDIS 09-14 11:00 → MEDS 09-14 14:02
PROVIDERS: Emergency Medicine; Internal Medicine; ADMIT Internal Medicine
DX: I13.0 Hypertensive heart and chronic kidney disease with heart failure and stage 1 through stage 4 chronic kidney disease, or unspecified chronic kidney disease (principal); I50.23 Acute on chronic systolic (congestive) heart failure; E11.22 Type 2 diabetes mellitus with diabetic chronic kidney disease; N18.3 Chronic kidney disease, stage 3 (moderate); D63.1 Anemia in chronic kidney disease; I48.2 Chronic atrial fibrillation; N39.0 Urinary tract infection, site not specified; N02.9 Recurrent and persistent hematuria with unspecified morphologic changes; R79.1 Abnormal coagulation profile; Z79.899 Other long term (current) drug therapy; Z87.891 Personal history of nicotine dependence; Z88.0 Allergy status to penicillin; Z88.7 Allergy status to serum and vaccine; Z79.02 Long term (current) use of antithrombotics/antiplatelets
CPT/HCPCS: 36415; 71045; 80053; 82550; 82947; 83036; 83735; 83880; 84484; 85025; 85610; 93005; 93010; 94664; 94760; 96374; 97162; 97165; 97530; 98960; 99285-25; A9270; G0378; J1940; J1956; J3010

== ENCOUNTER 2018-11-11 14:54 | Emergency (ER) | payer MEDICARE, OTHER ==
[~2018-11-11] VITALS: Ht 180.3 cm; Wt 72.6 kg
[~2018-11-11 14:54] MED LIST changes: +LEVOFLOXACIN750 MG PO; +POTA10T PO
[2018-11-11 15:55] LABS: BASOPHILS ABSOLUTE AUTO 0.07 K/mm3 (0.00-0.23); BASOPHILS PERCENT AUTO 1 % (0-2); EOSINOPHILS ABSOLUTE AUTO 0.38 K/mm3 (0.00-0.68); EOSINOPHILS PERCENT AUTO 6 % (0-6); Hematocrit 38.4 % (37.0-53.0); Hemoglobin 11.8 g/dL (13.5-17.5); IMMATURE GRAN ABSOLUTE AUTO 0.05 K/mm3 (0.00-0.10); IMMATURE GRAN PERCENT AUTO 1 % (0-1); LYMPHOCYTES ABSOLUTE AUTO 0.68 K/mm3 (0.84-5.20); LYMPHOCYTES PERCENT AUTO 10 % (21-46); MONOCYTES ABSOLUTE AUTO 0.66 K/mm3 (0.16-1.47); MONOCYTES PERCENT AUTO 10 % (4-13); Mean Corpuscular HGB 27.4 pg (26.0-34.0); Mean Corpuscular HGB Conc 30.7 g/dL (31.5-36.5); Mean Corpuscular Volume 89 fL (80-100); Mean Platelet Volume 10.3 fL (9.1-12.4); NEUTROPHILS ABSOLUTE AUTO 4.76 K/mm3 (1.96-9.15); NEUTROPHILS PERCENT AUTO 72 % (41-73); Platelet Count 137 K/mm3 (150-400); RDW Coefficient Variation 17.7 % (11.7-14.2); RDW Standard Deviation 57.8 fL (35.1-46.3)
[2018-11-11 16:14] LABS: Albumin, Blood 3.2 g/dL (3.4-5.0); Albumin/Globulin Ratio 0.9 (0.8-1.8); Bilirubin, Total 0.5 mg/dL (0.1-1.0); Bun/Creatinine Ratio 17.1 (12.0-20.0); Calcium, Blood 8.7 mg/dL (8.5-10.1); Creatinine, Blood 1.52 mg/dL (0.60-1.20); Globulin, Blood 3.7 g/dL (2.2-4.0); Potassium, Blood 4.3 mmol/L (3.5-5.5); Total Protein, Blood 6.9 g/dL (6.4-8.2)
[2018-11-11 16:49] LABS: Magnesium, Blood 1.9 mg/dL (1.6-2.4); Troponin I <0.015 ng/mL (0.000-0.040)
[2018-11-11 16:55] LABS: Prothrombin Time Results 39.8 Sec (9.7-11.5)
[2018-11-11 16:56] LABS: International Normalized Ratio 4.29
[2018-11-11 18:32] LABS: Source, Urine Clean Catch
[2018-11-11 18:38] LABS: Bilirubin, Urine Neg (Neg); Blood, Urine Neg (Neg); Glucose Qualitative, Urine Neg (Neg); Ketones, Urine Neg (Neg); Leukocyte Esterase, Urine Neg (Neg); Nitrite, Urine Neg (Neg); Protein, Urine Neg (Neg); Specific Gravity, Urine 1.015 (1.003-1.022); Urobilinogen, Urine NORM (Normal)
[2018-11-11 18:51] LABS: Appearance, Urine Clear (Clear); Color, Urine Yellow (P-Yellow)
== END 2018-11-11 21:20 | disposition home or self-care (01) ==
LOC: ER 14:54
PROVIDERS: Emergency Medicine
DX: T45.511A Poisoning by anticoagulants, accidental (unintentional), initial encounter (principal); R55 Syncope and collapse; E11.9 Type 2 diabetes mellitus without complications; I11.0 Hypertensive heart disease with heart failure; I50.9 Heart failure, unspecified; I48.91 Unspecified atrial fibrillation; E78.5 Hyperlipidemia, unspecified; Z85.828 Personal history of other malignant neoplasm of skin; Z87.891 Personal history of nicotine dependence; Z88.0 Allergy status to penicillin; Z88.7 Allergy status to serum and vaccine; Z79.899 Other long term (current) drug therapy; Z79.02 Long term (current) use of antithrombotics/antiplatelets
CPT/HCPCS: 36415; 71046; 80053; 81003; 83735; 83880; 84484; 85025; 85610; 93005; 93010; 99284-25

== ENCOUNTER 2019-02-16 10:00 | Inpatient (IN) | payer MEDICARE, OTHER ==
[~2019-02-16] VITALS: Ht 180.3 cm; Wt 80.0 kg
[2019-02-16] MEDS ORDERED: WARF5 PO (10:51)
[2019-02-16] MEDS ORDERED: PRAV20 PO (10:51)
[2019-02-16 10:57] LABS: BASOPHILS ABSOLUTE AUTO 0.03 K/mm3 (0.00-0.23); BASOPHILS PERCENT AUTO 0 % (0-2); EOSINOPHILS ABSOLUTE AUTO 0.15 K/mm3 (0.00-0.68); EOSINOPHILS PERCENT AUTO 2 % (0-6); Hematocrit 21.7 % (37.0-53.0); Hemoglobin 6.6 g/dL (13.5-17.5); IMMATURE GRAN ABSOLUTE AUTO 0.07 K/mm3 (0.00-0.10); IMMATURE GRAN PERCENT AUTO 1 % (0-1); LYMPHOCYTES ABSOLUTE AUTO 0.71 K/mm3 (0.84-5.20); LYMPHOCYTES PERCENT AUTO 9 % (21-46); MONOCYTES ABSOLUTE AUTO 0.72 K/mm3 (0.16-1.47); MONOCYTES PERCENT AUTO 9 % (4-13); Mean Corpuscular HGB 29.9 pg (26.0-34.0); Mean Corpuscular HGB Conc 30.4 g/dL (31.5-36.5); Mean Corpuscular Volume 98 fL (80-100); Mean Platelet Volume 10.8 fL (9.1-12.4); NEUTROPHILS ABSOLUTE AUTO 6.03 K/mm3 (1.96-9.15); NEUTROPHILS PERCENT AUTO 78 % (41-73); NRBC ABSOLUTE 0.03 K/mm3 (0.00-0.02); NRBC Auto 0.4 /100 WBC (0.0-0.2); Platelet Count 159 K/mm3 (150-400); RDW Coefficient Variation 17.3 % (11.7-14.2); RDW Standard Deviation 59.4 fL (35.1-46.3); Red Blood Cell Count 2.21 M/mm3 (4.30-5.90); White Blood Cell Count 7.71 K/mm3 (4.00-11.30)
[2019-02-16 11:24] LABS: Troponin I 0.087 ng/mL (0.000-0.040)
[2019-02-16 11:25] LABS: Alanine Aminotransfer (ALT/SGP 20 U/L (12-78); Alk Phos 146 U/L (50-136); Anion Gap 8 mmol/L (6-16); Aspartate Aminotrans (AST/SGOT 13 U/L (12-37); Bilirubin, Total 0.6 mg/dL (0.1-1.0); Blood Urea Nitrogen 26 mg/dL (8-24); Bun/Creatinine Ratio 22.2 (12.0-20.0); CO2, Blood 28 mmol/L (21-32); Calcium, Blood 8.5 mg/dL (8.5-10.1); Chloride, Blood 103 mmol/L (98-108); Creatinine, Blood 1.17 mg/dL (0.60-1.20); Globulin, Blood 3.1 g/dL (2.2-4.0); Glomerular Filtration Rate >60 (60-); Glucose, Blood 307 mg/dL (70-99); Potassium, Blood 4.1 mmol/L (3.5-5.5); Sodium, Blood 139 mmol/L (136-145); Total Protein, Blood 6.1 g/dL (6.4-8.2)
[2019-02-16 11:33] LABS: International Normalized Ratio 1.25; Prothrombin Time Results 13.2 Sec (9.7-11.5)
--- NOTE | 2019-02-16 16:15 | NUR ---
pt arrived to pcu 2 via gurney from ed. s.o. in attendence. he is a/ox3, pleasant and cooperative with care, follows commands well, denies pain at this time, lungs are clear dim in bases, resp even and unlabored, no cough noted, hrr, tele in place running 100% paced, no edema noted, ppp+1, cap refill <4 sec, vs stable, afebrile, iv sites are clear and patent, to left fa and wrist, will start the second unit of prbcs, btx4 abd flat soft nontender, voids without diff, skin pale, intact, maew, george, oriented to room layout, and call light, call light in reach.
--- NOTE | 2019-02-16 17:37 | NUR ---
pt left for scope via gurney.
--- NOTE | 2019-02-16 17:44 | NUR ---
PT INTO SDS VIA GURNEY. ROOM AIR. VSS. NPO. History, Chart, Medications and Allergies reviewed before start of procedure. Lungs clear T/O to Auscultation.
--- NOTE | 2019-02-16 17:56 | NUR ---
02/16/19 1756 RON ESPOSITO History, Chart, Medications and Allergies reviewed before start of procedure.3-LEAD EKG REVIEWED WITH PHYSICIAN PRIOR TO START OF PROCEDURE.O2 VIA N/C INTACT THROUGHOUT SEDATION/PROCEDURE. MONITOR INTACT WITH CONTINUOUS PULSE OXIMETRY AND INTERMITTENT BP.MAC WITH DR. BYRNE.
--- NOTE | 2019-02-16 18:49 | NUR ---
pt returned from scope, per report did not find anything to fix, s.o. in room. b/p dropped durring procedure, but returned to wnl. he is awake and doing well. call light in reach.
--- NOTE | 2019-02-16 20:25 | NUR ---
ASSUMED CARE ASSUMED CARE OF PT AT 1900, PATIENT LYING IN BED AWAKE AND ALERT, DAUGHTER SITTING AT BEDSIDE. PATIENT DENIES ACUTE PAIN OTHER THAN CHRONIC PAIN TO RIGHT SHOULDER. DENIES NEED FOR PAIN MEDICATION AT THIS TIME. PRBC'S TRANSFUSING, PATIENT IS ABSENT OF FEVER, DYSPNEA, AND CONFUSION. ALL VSS AND WNL. WILL CONTINUE TO ADMINISTER BLOOD PRODUCTS PER ORDER AND PRTOCOL AND WILL CONTINUE TO MONITOR.
[2019-02-16 21:49] LABS: Potassium, Blood 3.5 mmol/L (3.5-5.5); Troponin I 0.083 ng/mL (0.000-0.040)
--- NOTE | 2019-02-16 23:59 | NUR ---
TRANSFUSIONS FINISHED 2 UNITS PRBC'S AND 2 UNITS FFP FINISHED WITHOUT ABNORMAL EVENT. ALL VSS AND WNL THROUGHOUT. PATIENT IS ALERT, DENIES ACUTE PAIN, NO COUGH, DENIES DYSPNEA. PATIENT ANXIOUS TO SLEEP. WILL CONTINUE TO MONITOR
[2019-02-17 05:12] LABS: BASOPHILS ABSOLUTE AUTO 0.03 K/mm3 (0.00-0.23); BASOPHILS PERCENT AUTO 1 % (0-2); EOSINOPHILS PERCENT AUTO 3 % (0-6); Hematocrit 22.1 % (37.0-53.0); IMMATURE GRAN ABSOLUTE AUTO 0.03 K/mm3 (0.00-0.10); IMMATURE GRAN PERCENT AUTO 1 % (0-1); LYMPHOCYTES ABSOLUTE AUTO 0.74 K/mm3 (0.84-5.20); LYMPHOCYTES PERCENT AUTO 12 % (21-46); MONOCYTES ABSOLUTE AUTO 0.71 K/mm3 (0.16-1.47); MONOCYTES PERCENT AUTO 12 % (4-13); Mean Corpuscular HGB 29.4 pg (26.0-34.0); Mean Corpuscular HGB Conc 31.7 g/dL (31.5-36.5); Mean Platelet Volume 10.2 fL (9.1-12.4); NEUTROPHILS ABSOLUTE AUTO 4.29 K/mm3 (1.96-9.15); NEUTROPHILS PERCENT AUTO 72 % (41-73); NRBC ABSOLUTE 0.03 K/mm3 (0.00-0.02); NRBC Auto 0.5 /100 WBC (0.0-0.2); Platelet Count 119 K/mm3 (150-400); RDW Standard Deviation 57.6 fL (35.1-46.3); Red Blood Cell Count 2.38 M/mm3 (4.30-5.90)
[2019-02-17 05:19] LABS: Mean Corpuscular Volume 93 fL (80-100)
[2019-02-17 05:30] LABS: Source, Urine Clean Catch
[2019-02-17 05:30] LABS: International Normalized Ratio 1.21; Prothrombin Time Results 12.8 Sec (9.7-11.5)
[2019-02-17 05:37] LABS: Magnesium, Blood 1.8 mg/dL (1.6-2.4)
[2019-02-17 05:45] LABS: Alanine Aminotransfer (ALT/SGP 18 U/L (12-78); Albumin, Blood 2.7 g/dL (3.4-5.0); Alk Phos 120 U/L (50-136); Anion Gap 8 mmol/L (6-16); Aspartate Aminotrans (AST/SGOT 13 U/L (12-37); Blood Urea Nitrogen 25 mg/dL (8-24); Bun/Creatinine Ratio 21.9 (12.0-20.0); CO2, Blood 30 mmol/L (21-32); Calcium, Blood 8.2 mg/dL (8.5-10.1); Chloride, Blood 105 mmol/L (98-108); Creatinine, Blood 1.14 mg/dL (0.60-1.20); Free Thyroxine 1.36 ng/dL (0.70-1.60); Globulin, Blood 2.8 g/dL (2.2-4.0); Glomerular Filtration Rate >60 (60-); Glucose, Blood 162 mg/dL (70-99); Potassium, Blood 3.2 mmol/L (3.5-5.5); Sodium, Blood 143 mmol/L (136-145); Total Protein, Blood 5.5 g/dL (6.4-8.2); Troponin I 0.083 ng/mL (0.000-0.040)
[2019-02-17 06:02] LABS: Appearance, Urine Clear (Clear); Bilirubin, Urine Neg (Neg); Blood, Urine Neg (Neg); Color, Urine Yellow (P-Yellow); Glucose Qualitative, Urine Neg (Neg); Ketones, Urine Neg (Neg); Leukocyte Esterase, Urine Neg (Neg); Nitrite, Urine Neg (Neg); Protein, Urine Neg (Neg); Specific Gravity, Urine 1.015 (1.003-1.022); Urobilinogen, Urine 1+ (Normal); pH, Urine 6.5 (5.0-8.0)
--- NOTE | 2019-02-17 06:35 | NUR ---
SHIFT SUMMARY NO NEW CHANGES FROM PREVIOUS NOTE. PATIENT TRIED TO SLEEP THROUGH MANY ROUTINE INTERRUPTIONS, ALTHOUGH WAS COOPERATIVE WITH EVERY INTERVENTION. HE DENIED NEW PAIN, AND OFFERED NO SIGNS OF DISTRESS. 2 UNITS OF BLOOD AND 2 OF FRESH FROZEN PLASMA WERE TRANSFUSED WITHOUT ANY ADVERSE REACTION OR EVENT. ALL VSS AND WNL THROUGHOUT SHIFT. WILL CONTINUE TO MONITOR, AND WILL PASS CARE AND REPORT TO ONCOMING SHIFT AT 0700. PATIENT ALSEEP ON LEFT SIDE, BED LOCKED AND LOW, CALL LIGHT W/IN REACH
--- NOTE | 2019-02-17 08:00 | NUR ---
pt laying in bed awake a/ox3, pleasant and cooperative with care, follows commands well, denies pain, states he slept well last night, lungs are clear dim in bases, resp even and unlabored, no cough noted, hrr, tele in place running 100% paced, iv's are clear and patent, s.l. at this time, btx4, abd flat soft nontender, voids without diff, skin c/w/d, maew, george, call light in reach.
--- NOTE | 2019-02-17 11:30 | NUR ---
PT LEFT FOR BLOOD SCAN.
--- NOTE | 2019-02-17 15:05 | NUR ---
STARTED ONE UNIT OF PRBC, VS STABLE, LUNGS CLEAR DIM IN BASES, CALL LIGHT IN REACH.
--- NOTE | 2019-02-17 15:15 | NUR ---
PT IV WENT BAD, CHARGE NURSE ATTEMPTED, ICU NURSES ATTEMPTING.
--- NOTE | 2019-02-17 18:24 | NUR ---
PT SCAN REPORT CAME BACK, CALLED GRIS CASTILLO WITH REPORT. HE CAME IN TO SEE HIM TONIGHT, WILL DO A CT ANGIO IN AM, IF THEY CANT STOP BLEEDING HE MAY BE TRANSFERED TO [facility]. PT IS COMPLAINING ABOUT HIS NEW IV, IS IS RUNNING, NO SIGNS OF INFILTRATING. TYLENOL GIVEN. CALL LIGHT IN REACH.
[2019-02-18 04:01] LABS: BASOPHILS ABSOLUTE AUTO 0.03 K/mm3 (0.00-0.23); BASOPHILS PERCENT AUTO 1 % (0-2); EOSINOPHILS ABSOLUTE AUTO 0.14 K/mm3 (0.00-0.68); EOSINOPHILS PERCENT AUTO 2 % (0-6); Hematocrit 24.3 % (37.0-53.0); Hemoglobin 7.7 g/dL (13.5-17.5); IMMATURE GRAN ABSOLUTE AUTO 0.04 K/mm3 (0.00-0.10); IMMATURE GRAN PERCENT AUTO 1 % (0-1); LYMPHOCYTES PERCENT AUTO 11 % (21-46); MONOCYTES ABSOLUTE AUTO 0.65 K/mm3 (0.16-1.47); MONOCYTES PERCENT AUTO 11 % (4-13); Mean Corpuscular HGB 29.6 pg (26.0-34.0); Mean Corpuscular HGB Conc 31.7 g/dL (31.5-36.5); Mean Corpuscular Volume 94 fL (80-100); Mean Platelet Volume 10.5 fL (9.1-12.4); NEUTROPHILS ABSOLUTE AUTO 4.57 K/mm3 (1.96-9.15); NEUTROPHILS PERCENT AUTO 75 % (41-73); Platelet Count 130 K/mm3 (150-400); RDW Coefficient Variation 17.8 % (11.7-14.2); RDW Standard Deviation 57.3 fL (35.1-46.3); White Blood Cell Count 6.13 K/mm3 (4.00-11.30)
[2019-02-18 04:18] LABS: Alanine Aminotransfer (ALT/SGP 12 U/L (12-78); Albumin, Blood 2.6 g/dL (3.4-5.0); Albumin/Globulin Ratio 0.9 (0.8-1.8); Alk Phos 128 U/L (50-136); Anion Gap 6 mmol/L (6-16); Aspartate Aminotrans (AST/SGOT 11 U/L (12-37); Bilirubin, Total 1.3 mg/dL (0.1-1.0); Blood Urea Nitrogen 28 mg/dL (8-24); Bun/Creatinine Ratio 24.3 (12.0-20.0); CO2, Blood 31 mmol/L (21-32); Calcium, Blood 8.1 mg/dL (8.5-10.1); Chloride, Blood 105 mmol/L (98-108); Creatinine, Blood 1.15 mg/dL (0.60-1.20); Globulin, Blood 2.8 g/dL (2.2-4.0); Glomerular Filtration Rate >60 (60-); Glucose, Blood 161 mg/dL (70-99); Potassium, Blood 3.1 mmol/L (3.5-5.5); Sodium, Blood 142 mmol/L (136-145); Total Protein, Blood 5.4 g/dL (6.4-8.2)
[2019-02-18 04:31] LABS: Percent Saturation 22.9 % (20.0-50.0)
--- NOTE | 2019-02-18 05:09 | NUR ---
SHIFT SUMMARY PT SLEEPING IN ROOM COMFORTABLY AT THIS TIME. PT RECEIVED 1 UNIT PRBC'S DURING NIGHT D/T HGB AT 7.0. AFTER 1 UNIT OF PRBC'S HGH CAME BACK W/ AM LABS AT 7.7. PER PROVIDER ORDER WILL TRANSFUSE 1 UNIT PRBC'S TO KEEP HGB >8.0. RESP EVEN UNLABOED ON RA W/ SATS >92%. PT DENIES ANY CP OR SOB. PT HAD NO STOOL DURING NIGHT, USED URINAL IN BED AND CALLED APPROPRIATELY FOR EMPTYING. PT DENIED OTHER NEEDS. POWERGLIDE IV PLACED IN VINAY AT START OF SHIFT. CURRENTLY SALINE LOCKED. CALL LIGHT IS WITHIN REACH. WILL GIVE BEDSIDE REPORT TO ONCOMING RN.
--- NOTE | 2019-02-18 09:35 | NUR ---
V/O FROM DR BRENNAN TO REPEAT CBC 2 HOURS POST BLOOD TRANSFUSION WHICH WILL BE AT 1100, ORDER PLACED
--- NOTE | 2019-02-18 09:44 | NUR ---
PT BACK FROM CTA, BLACK TARRY STOOL SMEAR NOTED ON CHUX THAT WAS CLEAN WHEN PT LEFT FOR CTA. PT RETURNS TO ROOM REFUSED TO USE BSC COMMODE STS "I'M USING THE BACK TODAY I CAN!" IS VERY DEMANDING TO USE BATHROOM DESPITE EDUCATION, PT IS EDUCATED ON FALL RISKS GET UP AND WALKS IN TO BATHROOM DEMANDS THAT DOOR BE CLOSED BEHIND HIM
[2019-02-18 11:24] LABS: Hematocrit 27.5 % (37.0-53.0); Hemoglobin 8.8 g/dL (13.5-17.5); Mean Corpuscular HGB 29.6 pg (26.0-34.0); Mean Corpuscular Volume 93 fL (80-100); Mean Platelet Volume 10.3 fL (9.1-12.4); Platelet Count 129 K/mm3 (150-400); RDW Coefficient Variation 17.7 % (11.7-14.2); RDW Standard Deviation 56.2 fL (35.1-46.3); Red Blood Cell Count 2.97 M/mm3 (4.30-5.90); White Blood Cell Count 5.78 K/mm3 (4.00-11.30)
--- NOTE | 2019-02-18 18:00 | NUR ---
SHIFT NOTE PT A/O X4 ANSWERING ALL QUESTIONS APPROPRAITELY. PT HAS BEEN UPDATED THAT HE WILL NOT BE TRANSFERED TO [facility] AND UPDATED ON CTA RESULTS. HGB NOTED OT BE AT 8.8 THIS AFTERNOON. PT HAS BEEN INDEPENDANT IN ROOM WITH STAND BY ASSIST TO BATHROOM. VSS T/O THE SHIFT. NO ACUTE CHANGES WITH PT
[2019-02-19 03:41] LABS: BASOPHILS ABSOLUTE AUTO 0.03 K/mm3 (0.00-0.23); BASOPHILS PERCENT AUTO 1 % (0-2); EOSINOPHILS ABSOLUTE AUTO 0.24 K/mm3 (0.00-0.68); EOSINOPHILS PERCENT AUTO 4 % (0-6); Hematocrit 25.7 % (37.0-53.0); Hemoglobin 8.1 g/dL (13.5-17.5); IMMATURE GRAN ABSOLUTE AUTO 0.04 K/mm3 (0.00-0.10); IMMATURE GRAN PERCENT AUTO 1 % (0-1); LYMPHOCYTES ABSOLUTE AUTO 0.58 K/mm3 (0.84-5.20); LYMPHOCYTES PERCENT AUTO 10 % (21-46); MONOCYTES ABSOLUTE AUTO 0.74 K/mm3 (0.16-1.47); MONOCYTES PERCENT AUTO 13 % (4-13); Mean Corpuscular HGB Conc 31.5 g/dL (31.5-36.5); Mean Corpuscular Volume 92 fL (80-100); Mean Platelet Volume 10.7 fL (9.1-12.4); NEUTROPHILS ABSOLUTE AUTO 4.27 K/mm3 (1.96-9.15); NEUTROPHILS PERCENT AUTO 72 % (41-73); Platelet Count 127 K/mm3 (150-400); RDW Coefficient Variation 17.4 % (11.7-14.2); RDW Standard Deviation 55.2 fL (35.1-46.3); Red Blood Cell Count 2.79 M/mm3 (4.30-5.90)
[2019-02-19 03:55] LABS: Alanine Aminotransfer (ALT/SGP 13 U/L (12-78); Albumin, Blood 2.6 g/dL (3.4-5.0); Albumin/Globulin Ratio 0.9 (0.8-1.8); Alk Phos 123 U/L (50-136); Anion Gap 6 mmol/L (6-16); Aspartate Aminotrans (AST/SGOT 15 U/L (12-37); Bilirubin, Total 0.8 mg/dL (0.1-1.0); Blood Urea Nitrogen 23 mg/dL (8-24); Bun/Creatinine Ratio 20.5 (12.0-20.0); CO2, Blood 31 mmol/L (21-32); Chloride, Blood 105 mmol/L (98-108); Creatinine, Blood 1.12 mg/dL (0.60-1.20); Globulin, Blood 2.8 g/dL (2.2-4.0); Glomerular Filtration Rate >60 (60-); Glucose, Blood 145 mg/dL (70-99); Potassium, Blood 2.7 mmol/L (3.5-5.5); Sodium, Blood 142 mmol/L (136-145); Total Protein, Blood 5.4 g/dL (6.4-8.2)
--- NOTE | 2019-02-19 05:08 | NUR ---
SHIFT SUMMARY PT SLEEPING IN ROOM COMFORTABLY AT THIS TIME. NO ACUTE CHANGES IN STATUS T/O NIGHT. PT SLEPT WELL. DENIED ANY CP OR SOB. PT WAS SBA TO BSC DURING NIGHT. USED URINAL W/O ASSIST IN BED. RESP EVEN UNLABORED ON RA W/ SATS >92%. PT HGB REMAINED ABOVE 8 T/O NIGHT. PT DENIED ANY OTHER NEEDS. CALL LIGHT IN REACH. WILL GIVE REPORT TO ONCOMING RN. PT REFUSES BEDSIDE REPORT.
--- NOTE | 2019-02-19 11:04 | NUR ---
UPDATE ASSUMED CARE AT APPROXIMATELY 0730 PT ALERT AND ORIENTED. VS STABLE. HR PACED IN THE 70'S. PT DENIES ANY PAIN. PT ABD SOFT NONTENDER. PT DENIES HAVING ANY BM THIS AM. DR. BRENNAN IN WITH ORDERS FOR 1U PRBC TO TRANSFUSE. DR. CRAWFORD IN WITH PLANS FOR COLONOSCOPY ON WEDNESDAY AND TO START PREP TOMORROW AT LUNCH TIME. PT OK TO HAVE FULL LIQUIDS UNTIL TOMORROW AT LUNCH. ORDERS FOR TRANSFER TO MEDICAL FLOOR. REPORT GIVEN TO DAVE GOLDSTEIN. PT TO BE TAKEN UP BY WHEELCHAIR.
--- NOTE | 2019-02-19 13:29 | NUR ---
PATIENT GAVE THIS AUTOMATIC DRILLER AND REAMER PERMISSION TO PROVIDE CARE ON 02/21/2019.
--- NOTE | 2019-02-19 15:32 | NUR ---
FILI put a hat in toilet for pt to have a bowel movement in, right before he used the bathroom, he moved the hat out of the toilet, so if he's bleeding, I suppose the patient will let the nurse know. Pt had an accident before using bathroom, did not want to change underpants.
--- NOTE | 2019-02-19 15:57 | NUR ---
PT TRANSFERRED TO ROOM 309 FROM PCU 2 AT 1140 IN CHEELCHAIR, STAFF ESCORT. PT AMBULATED INTO BED SBA WITH ADEQUATE STRENGTH AND BALANCE, DENINIES DIZZINESS. VSS. ORIENTED TO ROOM AND CALL LIGHT. RN SENT FOR UNIT OF PRBC'S.
--- NOTE | 2019-02-20 05:05 | NUR ---
SHIFT SUMMARY: 83 Y/O MALE RESTED COMFORTABLY ALL SHIFT; DENIES PAIN OR NAUSEA; TELEMETRY REFLECTS PACED RYTHYM WITH HEART RATE IN 70's; ALERT AND ORIENTED X 4; BED LOW POSITION WITH CALL LIGHT AT SIDE.
--- NOTE | 2019-02-20 05:40 | NUR ---
THIS NURSE WAS UNABLE TO DRAW BLOOD FOR AM LABS FROM LEFT UPPER ARM POWER ANNITA ESCOBEDO IN LAB NOTIFIED.
[2019-02-20 08:24] LABS: BASOPHILS ABSOLUTE AUTO 0.03 K/mm3 (0.00-0.23); BASOPHILS PERCENT AUTO 1 % (0-2); EOSINOPHILS ABSOLUTE AUTO 0.21 K/mm3 (0.00-0.68); EOSINOPHILS PERCENT AUTO 3 % (0-6); Hematocrit 26.5 % (37.0-53.0); Hemoglobin 8.4 g/dL (13.5-17.5); IMMATURE GRAN ABSOLUTE AUTO 0.04 K/mm3 (0.00-0.10); IMMATURE GRAN PERCENT AUTO 1 % (0-1); LYMPHOCYTES PERCENT AUTO 9 % (21-46); MONOCYTES ABSOLUTE AUTO 0.81 K/mm3 (0.16-1.47); MONOCYTES PERCENT AUTO 13 % (4-13); Mean Corpuscular HGB 29.6 pg (26.0-34.0); Mean Corpuscular HGB Conc 31.7 g/dL (31.5-36.5); Mean Corpuscular Volume 93 fL (80-100); Mean Platelet Volume 10.6 fL (9.1-12.4); NEUTROPHILS ABSOLUTE AUTO 4.71 K/mm3 (1.96-9.15); NEUTROPHILS PERCENT AUTO 74 % (41-73); Platelet Count 124 K/mm3 (150-400); RDW Coefficient Variation 17.4 % (11.7-14.2); RDW Standard Deviation 53.9 fL (35.1-46.3); Red Blood Cell Count 2.84 M/mm3 (4.30-5.90)
[2019-02-20 08:47] LABS: Alanine Aminotransfer (ALT/SGP 15 U/L (12-78); Albumin, Blood 2.6 g/dL (3.4-5.0); Alk Phos 124 U/L (50-136); Anion Gap 6 mmol/L (6-16); Aspartate Aminotrans (AST/SGOT 15 U/L (12-37); Blood Urea Nitrogen 24 mg/dL (8-24); Bun/Creatinine Ratio 21.1 (12.0-20.0); CO2, Blood 31 mmol/L (21-32); Calcium, Blood 8.2 mg/dL (8.5-10.1); Chloride, Blood 106 mmol/L (98-108); Creatinine, Blood 1.14 mg/dL (0.60-1.20); Globulin, Blood 2.6 g/dL (2.2-4.0); Glomerular Filtration Rate >60 (60-); Glucose, Blood 149 mg/dL (70-99); Potassium, Blood 3.1 mmol/L (3.5-5.5); Sodium, Blood 143 mmol/L (136-145); Total Protein, Blood 5.2 g/dL (6.4-8.2)
[2019-02-20] MEDS ORDERED: Vitamin D2000 UNIT PO (10:13)
[2019-02-20] MEDS ORDERED: THERA1 EACH PO (10:13)
--- NOTE | 2019-02-20 12:01 | NUR ---
Blood Sugar Checks Pt has Diabetes Mellitus and reports checking blood sugars at home, but does not take any antidiabetics. Dr. Diaz informed, order received for AC blood glucose checks.
--- NOTE | 2019-02-20 18:17 | NUR ---
Shift Summary A/Ox3, pleasant and cooperative. Independent in room, calls appropriately. Uses urinal at bedside. Bowel prep has been started, Plavix has been held. No other changes this shift.
[2019-02-21 05:00] LABS: BASOPHILS ABSOLUTE AUTO 0.03 K/mm3 (0.00-0.23); BASOPHILS PERCENT AUTO 1 % (0-2); EOSINOPHILS ABSOLUTE AUTO 0.18 K/mm3 (0.00-0.68); EOSINOPHILS PERCENT AUTO 3 % (0-6); Hematocrit 25.2 % (37.0-53.0); Hemoglobin 7.9 g/dL (13.5-17.5); IMMATURE GRAN ABSOLUTE AUTO 0.02 K/mm3 (0.00-0.10); IMMATURE GRAN PERCENT AUTO 0 % (0-1); LYMPHOCYTES ABSOLUTE AUTO 0.69 K/mm3 (0.84-5.20); LYMPHOCYTES PERCENT AUTO 12 % (21-46); MONOCYTES ABSOLUTE AUTO 0.71 K/mm3 (0.16-1.47); MONOCYTES PERCENT AUTO 12 % (4-13); Mean Corpuscular HGB 29.7 pg (26.0-34.0); Mean Corpuscular HGB Conc 31.3 g/dL (31.5-36.5); Mean Corpuscular Volume 95 fL (80-100); Mean Platelet Volume 10.5 fL (9.1-12.4); NEUTROPHILS ABSOLUTE AUTO 4.13 K/mm3 (1.96-9.15); NEUTROPHILS PERCENT AUTO 72 % (41-73); Platelet Count 129 K/mm3 (150-400); RDW Coefficient Variation 17.2 % (11.7-14.2); RDW Standard Deviation 55.5 fL (35.1-46.3); Red Blood Cell Count 2.66 M/mm3 (4.30-5.90); White Blood Cell Count 5.76 K/mm3 (4.00-11.30)
--- NOTE | 2019-02-21 05:13 | NUR ---
SHIFT SUMMARY- PT. A&O, INDEP IN ROOM. SCHEDULED FOR COLONOSCOPY IN THE AFTERNOON. COMPLETED FIRST HALF OF BOWEL PREP LAST NIGHT W/O DIFFICULTY. PT. STATES BM'S ARE STARTING TO LOOK CLEAR. NO C/O PAIN OR DISCOMFORT. PT. SLEEPING IN BED, NO APPARENT DISTRESS NOTED. CALL LIGHT WITHIN REACH AND SIDE RAILS UP X2. WILL CONT TO MONITOR.
[2019-02-21 05:21] LABS: Anion Gap 6 mmol/L (6-16); Blood Urea Nitrogen 23 mg/dL (8-24); Bun/Creatinine Ratio 20.4 (12.0-20.0); CO2, Blood 32 mmol/L (21-32); Calcium, Blood 8.2 mg/dL (8.5-10.1); Chloride, Blood 106 mmol/L (98-108); Creatinine, Blood 1.13 mg/dL (0.60-1.20); Glomerular Filtration Rate >60 (60-); Glucose, Blood 117 mg/dL (70-99); Sodium, Blood 144 mmol/L (136-145)
--- NOTE | 2019-02-21 16:38 | NUR ---
PT TAKEN FOR PROCEDURE PT TAKEN TO DAY SURGERY FOR COLONOSCOPY. LYNDSEY RN FROM DAY [facility] UPDATED THAT PT HAS DRANK 4000CC OF PREP AND STILL PASSING RICKY RED LIQUID WITH STOOL.
--- NOTE | 2019-02-21 16:55 | NUR ---
Patient up to Ambulate independently to bed WITH STANDBY ASSIST. PT ALERT AND ORIENTED. Patient states colon prep results clear WITH BRIGHT RED BLOOD. History, Chart, Medications and Allergies reviewed before start of procedure.Lungs clear T/O to Auscultation. Patient confirms NPO status and agrees with scheduled surgery. GAVE DR COSTA EKG STRIP. NO NEW ORDERS.
--- NOTE | 2019-02-21 18:14 | NUR ---
SHIFT SUMMARY PT HAS PASSED MULTIPLE RED STOOLS DURING BOWEL PREP, DR. CRAWFORD NOTIFIED. PT MARTHA PAIN DURING THE SHIFT. PT WAS CLEAR LIQUIDS BEFORE LUNCH AND DECLINED CL TRAY DURING THIS SHIFT. PT AMBULATES INDEPENTENTLY IN ROOM. PT OFF FLOOR FOR PROCEDURE.
--- NOTE | 2019-02-21 18:25 | NUR ---
02/21/[address] HERE TO PROVIDE ANESTHESIA CARE, PLEASE SEE DETAILED RECORD. History, Chart, Medications and Allergies reviewed before start of procedure. Patient states colon prep results clear. MONITOR INTACT WITH CONTINUOUS PULSE OXIMETRY AND INTERMITTENT BP. O2 VIA N/C INTACT THROUGHOUT SEDATION/PROCEDURE VIA NON-REBREATHER AND END TIDAL CO2.
--- NOTE | 2019-02-21 19:49 | NUR ---
PER DR CRAWFORD OK FOR PATIENT TO AWAIT COMMERCIAL SPECIALIST ARRIVAL IN HIS MEDICAL FLOOR ROOM. CALL IN TO ADY VOGEL RN TO NOTIFY HER. SHE WILL RETURN MY CALL.
--- NOTE | 2019-02-21 20:18 | NUR ---
TRANSFER NOTE HANDOFF CALLED TO ICU NURSE MARTIN. PERSONAL POSSESSIONS AND INSULIN PEN GATHERED BY CHARGE AND WALKED TO ICU 13.
[2019-02-21 20:27] LABS: Hematocrit 24.7 % (37.0-53.0); Hemoglobin 7.6 g/dL (13.5-17.5); Mean Corpuscular HGB 29.8 pg (26.0-34.0); Mean Corpuscular HGB Conc 30.8 g/dL (31.5-36.5); Mean Corpuscular Volume 97 fL (80-100); Mean Platelet Volume 10.3 fL (9.1-12.4); Platelet Count 130 K/mm3 (150-400); RDW Coefficient Variation 17.3 % (11.7-14.2); RDW Standard Deviation 57.7 fL (35.1-46.3); Red Blood Cell Count 2.55 M/mm3 (4.30-5.90); White Blood Cell Count 5.28 K/mm3 (4.00-11.30)
--- NOTE | 2019-02-21 21:00 | NUR ---
ASSUMED PT CARE AT 2029 PT ARRIVED ON UNIT FROM DAY SURGERY S/P COLONOSCOPY ICU STATUS FOR ACTIVE GI BLEED OF UNKNOWN SOURCE. PER REPORT PT HAD TWO POLYPS THAT WERE NOT ACTIVELY BLEEDING; HOWEVER, BOTH WERE REMOVED. PT IS AWAITING TRANSFER TO [facility] FOR [facility] ENTEROSCOPY FOR POSSIBLE SMALL BOWEL BLEED. PT IS ALERT AND ORIENTED AND ABLE TO MAKE HIS NEEDS KNOWN. PT APPEARS DISCOURAGED REGARDING THE NEWS OF HAVING TO TRANSFER. VOICED HIS CONCERN THAT HE WOULD PREFER TO GO TO [place] INSTEAD. CALL PLACED TO DR. CRAWFORD WHO STATED THAT THE HOSPITAL IN [place] DOES NOT PERFORM THE PROCEDURE THAT THE PT NEEDS DONE. INFORMATION RELAYED TO PT AND SIGNIFICANT OTHER, ROZINA WHO WERE BOTH UNDERSTANDING. VS HAVE BEEN STABLE SINCE ARRIVAL. PT HASN'T HAD ANY STOOLS SINCE ARRIVAL. POWERGLIDE TO LEFT UPPER ARM FLUSHES ADEQUATELY; HOWEVER, DOES NOT DRAW. THEREFORE, LAB CALLED TO DRAW TYPE AND CROSS IN ORDER TO TRANSFUSE BLOOD THAT WAS ORDERED. PT MAY NEED PICC PLACED TOMORROW FOR MORE PERMANENT ACCESS HE IS A DIFFICULT LAB DRAW. ATTEMPTED TO START ANOTHER IV USING ULTRASOUND GUIDANCE; HOWEVER, ALL VEINS ARE WITHIN VERY CLOSE PROXIMITY TO HIS ARTERIES, IN WHICH I WAS NOT COMFORTABLE ATTEMPTING AN IV START. PT IS SITTING UP IN BED VISITING WITH HIS SIGNIFICANT OTHER. ABLE TO REPOSITION SELF. REMAINS ON A CLEAR LIQUID DIET. ABLE TO MAKE HIS BASIC NEEDS KNOWN. VOIDS APPROPRIATELY USING URINAL. REQUESTED BIBLE THAT WAS OBTAINED FOR THEM IN WHICH THEY WERE GRATEFUL. CALL LIGHT WITHIN REACH; WILL CONTINUE TO MONITOR.
[2019-02-22 03:34] LABS: Hematocrit 24.8 % (37.0-53.0); Hemoglobin 7.8 g/dL (13.5-17.5)
[2019-02-22 03:50] LABS: Anion Gap 5 mmol/L (6-16); Blood Urea Nitrogen 22 mg/dL (8-24); Bun/Creatinine Ratio 20.8 (12.0-20.0); CO2, Blood 30 mmol/L (21-32); Calcium, Blood 8.1 mg/dL (8.5-10.1); Chloride, Blood 109 mmol/L (98-108); Creatinine, Blood 1.06 mg/dL (0.60-1.20); Glomerular Filtration Rate >60 (60-); Glucose, Blood 119 mg/dL (70-99); Potassium, Blood 3.1 mmol/L (3.5-5.5); Sodium, Blood 144 mmol/L (136-145)
--- NOTE | 2019-02-22 06:00 | NUR ---
END OF SHIFT SUMMARY PT HAS RECEIVED TWO UNITS OF PRBC'S THIS SHIFT D/T HGB LESS THAN 8. PT HASN'T HAD ANY STOOLS THIS SHIFT. POWERGLIDE TO LEFT UPPER ARM WAS SUCCESSFUL AT DRAWING MORNING LABS; WILL PASS ON TO DAY RN REGARDING POSSIBLE PICC PLACEMENT D/T DIFFICULTIES DRAWING BLOOD FROM POWERGLIDE YESTERDAY, WELL PT BEING A DIFFICULT IV START AND NEEDS MORE ACCESS. PT VOIDED TWICE THIS SHIFT; MINIMAL AMOUNTS BOTH TIMES. PT REMAINS 100% VENTRICULAR PACED WITH FREQUENT PVC'S; HR 70'S. VSS. POTASSIUM LOW AT 3.1; PT RECEIVES 20MEQ OF POTASSIUM THREE TIMES DAILY; THEREFORE, WILL PASS OFF TO DAY RN THAT PO POTASSIUM MAY NEED TO BE INCREASED. CALL LIGHT IS WITHIN REACH AND PT IS ABLE TO MAKE HIS NEEDS KNOWN. WILL CONTINUE TO MONITOR UNTIL REPORT IS HANDED OFF TO DAY RN.
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
--- NOTE | 2019-02-22 11:14 | NUR ---
PT HESISTANT TO TRANSFER TO [facility]. WANTED TO GO HOME, HE ALSO WANTED TO TALK TO DR. FINN. CONTACTED DR. FINN, HE STATED HE'S NOT ABLE TO SEE NOT UNTIL LATER THIS AFTERNOON, INFORMED HIM OF PT'S CONCERNS OF NOT WANTING TO GO TO [facility], DR. FINN INFORMED THIS NURSE TO LET THE PT KNOW THAT HE CAN'T AGAINST DR. GABRIEL'S RECOMMENDATIONS.
[2019-02-22 14:29] LABS: Hematocrit 28.3 % (37.0-53.0)
--- NOTE | 2019-02-22 14:38 | NUR ---
SPOKE WITH DR. FINN REGARDING PICC, SINCE PT HAS POOR ACCESS AND DIFFICULT TO DRAW. DR. FINN AGREED. UPDATED HIM OF PT'S TRANSFER STATUS TO [facility].
--- NOTE | 2019-02-22 18:32 | NUR ---
PT WAS DISCHARGED AT THIS TIME. PT WAS TRANSPORTED TO [facility] 5A RM 1 BED 2. REPORT GIVEN TO DELL KENDRICK RN @ [facility].
== END 2019-02-22 18:30 | disposition short-term general hospital (02) | DRG 378 ==
LOC: ER 10:00 → ICUW 14:06 → MEDS 14:06 → PCU 14:06 → MEDS 15:46 → PCU 16:03 → MEDS 02-19 11:20 → ICUW 02-21 19:55
PROVIDERS: Emergency Medicine; Hospitalist; Nurse Practitioner Acute Care; Student in an Organized Health Care Education/Training Program; ADMIT Internal Medicine
PROC: 0DJ08ZZ Inspection of Upper Intestinal Tract, Via Natural or Artificial Opening Endoscopic (ICD-10-PCS; 2019-02-16)
PROC: 30233R1 Transfusion of Nonautologous Platelets into Peripheral Vein, Percutaneous Approach (ICD-10-PCS; principal; 2019-02-16 17:00)
PROC: 0DBK8ZZ Excision of Ascending Colon, Via Natural or Artificial Opening Endoscopic (ICD-10-PCS; 2019-02-21)
PROC: 0DBM8ZZ Excision of Descending Colon, Via Natural or Artificial Opening Endoscopic (ICD-10-PCS; 2019-02-21)
DX: K92.1 Melena (principal); I13.0 Hypertensive heart and chronic kidney disease with heart failure and stage 1 through stage 4 chronic kidney disease, or unspecified chronic kidney disease; D62 Acute posthemorrhagic anemia; I48.20 Chronic atrial fibrillation, unspecified; I50.22 Chronic systolic (congestive) heart failure; E78.5 Hyperlipidemia, unspecified; I25.10 Atherosclerotic heart disease of native coronary artery without angina pectoris; Z87.891 Personal history of nicotine dependence; Z79.01 Long term (current) use of anticoagulants; N18.3 Chronic kidney disease, stage 3 (moderate); E11.22 Type 2 diabetes mellitus with diabetic chronic kidney disease; Z95.810 Presence of automatic (implantable) cardiac defibrillator; Z95.5 Presence of coronary angioplasty implant and graft; K22.2 Esophageal obstruction; E11.51 Type 2 diabetes mellitus with diabetic peripheral angiopathy without gangrene; J44.9 Chronic obstructive pulmonary disease, unspecified; E87.6 Hypokalemia
CPT/HCPCS: 36415; 36430; 36569; 71045; 71046; 74174; 78278; 80048; 80053; 81003; 82010; 82272; 82728; 82800; 82947; 83540; 83550; 83735; 83880; 84132; 84439; 84443; 84481; 84484; 85014; 85018; 85025; 85027; 85610; 85730; 86850; 86900; 86901; 86923; 88305; 93005; 93010; 96361; 96374; 99285-25; A9270; A9560; C1751; C9113; J1940; J2001; J2370; J2704; J3480; J7030; J7120; P9016; P9059; Q9967

== ENCOUNTER 2020-04-01 13:36 | Emergency (ER) | payer MEDICARE, OTHER ==
[~2020-04-01] VITALS: Ht 175.3 cm; Wt 77.1 kg
[~2020-04-01 13:36] MED LIST changes: -Amiodarone HCl200 MG PO; -CLOP75 PO; -METO50ER PO; -POTA10T PO; -TAMS.4ER PO; +THERA1 EACH PO
[2020-04-01 14:45] LABS: BASOPHILS ABSOLUTE AUTO 0.06 K/mm3 (0.00-0.23); BASOPHILS PERCENT AUTO 1 % (0-2); EOSINOPHILS ABSOLUTE AUTO 0.07 K/mm3 (0.00-0.68); EOSINOPHILS PERCENT AUTO 1 % (0-6); Hemoglobin 12.1 g/dL (13.5-17.5); IMMATURE GRAN ABSOLUTE AUTO 0.03 K/mm3 (0.00-0.10); IMMATURE GRAN PERCENT AUTO 0 % (0-1); LYMPHOCYTES ABSOLUTE AUTO 0.59 K/mm3 (0.84-5.20); LYMPHOCYTES PERCENT AUTO 8 % (21-46); MONOCYTES ABSOLUTE AUTO 0.86 K/mm3 (0.16-1.47); MONOCYTES PERCENT AUTO 12 % (4-13); Mean Corpuscular HGB 27.3 pg (26.0-34.0); Mean Corpuscular Volume 88 fL (80-100); Mean Platelet Volume 11.2 fL (9.1-12.4); NEUTROPHILS ABSOLUTE AUTO 5.74 K/mm3 (1.96-9.15); NEUTROPHILS PERCENT AUTO 78 % (41-73); Platelet Count 129 K/mm3 (150-400); RDW Coefficient Variation 17.1 % (11.7-14.2); RDW Standard Deviation 54.9 fL (35.1-46.3); Red Blood Cell Count 4.44 M/mm3 (4.30-5.90); White Blood Cell Count 7.35 K/mm3 (4.00-11.30)
[2020-04-01 14:52] LABS: Albumin, Blood 3.2 g/dL (3.4-5.0); Albumin/Globulin Ratio 0.7 (0.8-1.8); Bilirubin, Total 1.6 mg/dL (0.1-1.0); Bun/Creatinine Ratio 14.4 (12.0-20.0); Calcium, Blood 9.2 mg/dL (8.5-10.1); Creatinine, Blood 1.53 mg/dL (0.60-1.20); Globulin, Blood 4.3 g/dL (2.2-4.0); Potassium, Blood 3.9 mmol/L (3.5-5.5); Total Protein, Blood 7.5 g/dL (6.4-8.2); Troponin I 0.031 ng/mL (0.000-0.040)
== END 2020-04-01 17:36 | disposition home or self-care (01) ==
LOC: ER 13:36
PROVIDERS: Emergency Medicine
DX: I13.0 Hypertensive heart and chronic kidney disease with heart failure and stage 1 through stage 4 chronic kidney disease, or unspecified chronic kidney disease (principal); I50.9 Heart failure, unspecified; N18.30 Chronic kidney disease, stage 3 unspecified; I25.10 Atherosclerotic heart disease of native coronary artery without angina pectoris; Z79.02 Long term (current) use of antithrombotics/antiplatelets; Z79.899 Other long term (current) drug therapy; Z79.01 Long term (current) use of anticoagulants; Z88.0 Allergy status to penicillin; Z88.7 Allergy status to serum and vaccine
CPT/HCPCS: 36415; 71045; 80053; 83880; 84484; 85025; 93005; 93010; 96374; 99285-25; J1940

== ENCOUNTER 2020-04-05 16:25 | Inpatient (IN) | payer MEDICARE, OTHER ==
[~2020-04-05] VITALS: Ht 180.3 cm; Wt 778.4 kg
[2020-04-05] MEDS ORDERED: PRAV20 PO (17:32)
[2020-04-05] MEDS ORDERED: FURO40 PO (17:32)
[2020-04-05] MEDS ORDERED: METO50ER PO (17:32)
[2020-04-05] MEDS ORDERED: TAMS.4ER PO (17:32)
[2020-04-05] MEDS ORDERED: POTA10T PO (17:55)
[2020-04-05 17:58] LABS: BASOPHILS ABSOLUTE AUTO 0.04 K/mm3 (0.00-0.23); BASOPHILS PERCENT AUTO 1 % (0-2); EOSINOPHILS ABSOLUTE AUTO 0.18 K/mm3 (0.00-0.68); EOSINOPHILS PERCENT AUTO 3 % (0-6); Hematocrit 36.1 % (37.0-53.0); Hemoglobin 11.3 g/dL (13.5-17.5); IMMATURE GRAN ABSOLUTE AUTO 0.03 K/mm3 (0.00-0.10); IMMATURE GRAN PERCENT AUTO 0 % (0-1); LYMPHOCYTES ABSOLUTE AUTO 0.41 K/mm3 (0.84-5.20); LYMPHOCYTES PERCENT AUTO 6 % (21-46); MONOCYTES ABSOLUTE AUTO 0.57 K/mm3 (0.16-1.47); MONOCYTES PERCENT AUTO 8 % (4-13); Mean Corpuscular HGB 27.2 pg (26.0-34.0); Mean Corpuscular HGB Conc 31.3 g/dL (31.5-36.5); Mean Corpuscular Volume 87 fL (80-100); Mean Platelet Volume 9.7 fL (9.1-12.4); NEUTROPHILS ABSOLUTE AUTO 5.79 K/mm3 (1.96-9.15); NEUTROPHILS PERCENT AUTO 83 % (41-73); Platelet Count 148 K/mm3 (150-400); RDW Coefficient Variation 16.9 % (11.7-14.2); RDW Standard Deviation 53.1 fL (35.1-46.3); Red Blood Cell Count 4.16 M/mm3 (4.30-5.90); White Blood Cell Count 7.02 K/mm3 (4.00-11.30)
[2020-04-05 18:38] LABS: Albumin, Blood 3.1 g/dL (3.4-5.0); Albumin/Globulin Ratio 0.8 (0.8-1.8); Bilirubin, Total 1.1 mg/dL (0.1-1.0); Bun/Creatinine Ratio 12.4 (12.0-20.0); Calcium, Blood 8.8 mg/dL (8.5-10.1); Creatinine, Blood 1.29 mg/dL (0.60-1.20); Globulin, Blood 3.7 g/dL (2.2-4.0); Potassium, Blood 3.4 mmol/L (3.5-5.5); Total Protein, Blood 6.8 g/dL (6.4-8.2); Troponin I 0.035 ng/mL (0.000-0.040)
[2020-04-05] MEDS ORDERED: Amiodarone HCl200 MG PO (19:47)
[2020-04-05] MEDS ORDERED: CLOP75 PO (19:47)
[2020-04-05] MEDS ORDERED: Lisinopril2.5 MG PO (19:47)
[2020-04-05] MEDS ORDERED: Vitamin D2000 UNIT PO (19:47)
[2020-04-05] MEDS ORDERED: XARELTO20 MG PO (19:48)
[2020-04-05] MEDS ORDERED: FERSU300 PO (19:49)
[2020-04-06 01:32] LABS: BASOPHILS ABSOLUTE AUTO 0.07 K/mm3 (0.00-0.23); BASOPHILS PERCENT AUTO 1 % (0-2); EOSINOPHILS ABSOLUTE AUTO 0.24 K/mm3 (0.00-0.68); EOSINOPHILS PERCENT AUTO 3 % (0-6); Hematocrit 37.2 % (37.0-53.0); Hemoglobin 11.9 g/dL (13.5-17.5); IMMATURE GRAN ABSOLUTE AUTO 0.04 K/mm3 (0.00-0.10); IMMATURE GRAN PERCENT AUTO 1 % (0-1); LYMPHOCYTES ABSOLUTE AUTO 0.56 K/mm3 (0.84-5.20); LYMPHOCYTES PERCENT AUTO 7 % (21-46); MONOCYTES ABSOLUTE AUTO 0.75 K/mm3 (0.16-1.47); MONOCYTES PERCENT AUTO 10 % (4-13); Mean Corpuscular HGB 27.3 pg (26.0-34.0); Mean Corpuscular Volume 85 fL (80-100); Mean Platelet Volume 10.2 fL (9.1-12.4); NEUTROPHILS ABSOLUTE AUTO 6.12 K/mm3 (1.96-9.15); NEUTROPHILS PERCENT AUTO 79 % (41-73); Platelet Count 148 K/mm3 (150-400); RDW Coefficient Variation 16.7 % (11.7-14.2); RDW Standard Deviation 52.1 fL (35.1-46.3); Red Blood Cell Count 4.36 M/mm3 (4.30-5.90); White Blood Cell Count 7.78 K/mm3 (4.00-11.30)
[2020-04-06 01:53] LABS: Albumin, Blood 3.1 g/dL (3.4-5.0); Albumin/Globulin Ratio 0.8 (0.8-1.8); Bun/Creatinine Ratio 11.8 (12.0-20.0); Calcium, Blood 8.8 mg/dL (8.5-10.1); Creatinine, Blood 1.36 mg/dL (0.60-1.20); Globulin, Blood 3.8 g/dL (2.2-4.0); Potassium, Blood 3.2 mmol/L (3.5-5.5); Total Protein, Blood 6.9 g/dL (6.4-8.2); Troponin I 0.029 ng/mL (0.000-0.040)
--- NOTE | 2020-04-06 06:31 | NUR ---
Patient arrived around 2200 from ER Alert and oriented X4, without complaints of discomfort other than chest pressure which patient stated was resolving as he became less SOB as the diuretics began to work. Patient had difficulty tolerating IV potassium and 2nd bag had to be stopped right after it had started. voiding frequently 200-300 pinkish/peach colored urine
[2020-04-06 10:35] LABS: Troponin I 0.031 ng/mL (0.000-0.040)
--- NOTE | 2020-04-06 12:55 | NUR ---
Echocardiogram completed.
--- NOTE | 2020-04-06 17:26 | NUR ---
PT IS A/OX3, PLEASANT AND COOPERATIVE, THE PT IS UP WITH MINIMAL ASSIST TO THE BATHROOM, THE PT BECOMES VERY SOB WITH ACTIVITY, THE PT USES ACCESORY MUSCLES TO BREATH EVEN AT REST, O2 SATS TODAY WERE > 95% ON RA, PT DENIED ANY CHEST PAINS T/O THE DAY OR NAUSEA, PT BREATH SOUNDS WERE CLEAR THIS AM, PT WAS EDUCATED ON IS USE AND WAS USEING THE IS TODAY, CALL LIGHT IN REACH WILL CONTINUE TO MONITOR AND ASSESS FOR CHANGES
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
[2020-04-07 06:22] LABS: Bun/Creatinine Ratio 14.7 (12.0-20.0); Calcium, Blood 8.5 mg/dL (8.5-10.1); Creatinine, Blood 1.43 mg/dL (0.60-1.20); Potassium, Blood 3.5 mmol/L (3.5-5.5)
[2020-04-07] MEDS ORDERED: Amiodarone HCl200 MG PO (11:00)
[2020-04-07] MEDS ORDERED: CLOP75 PO (11:00)
[2020-04-07] MEDS ORDERED: Lisinopril2.5 MG PO (11:01)
--- NOTE | 2020-04-07 14:29 | NUR ---
PT DISCHARGED THE PT VERBALIZED UNDERSTANDING OF THE DC INSTRUCTIONS, THE PTS PRESCRIPTIONS WERE FAXED TO COUNT INCLUDES THE [facility], THE PT USES ACCESORY MUSCLES TO BREATH, SOB WITH LITTLE ACTIVITY, THE PT WAS TRANSFERED VIA WHEELCHAIR ACCOMPANIED BY THE SHELL MACHINE OPERATOR TO THE FRONT WHERE HE SAID THAT HE WOULD WAIT FOR HIS RIDE, THE PT DECLINED TO STAY IN HIS ROOM UNTIL HIS RIDE ARRIVED, PT WAS A/OX3 AT THE TIME OF DC
== END 2020-04-07 14:27 | disposition home or self-care (01) | DRG 291 ==
LOC: ER 16:25 → MEDS 16:26
PROVIDERS: Emergency Medicine; Family Medicine; ADMIT Internal Medicine
DX: I13.0 Hypertensive heart and chronic kidney disease with heart failure and stage 1 through stage 4 chronic kidney disease, or unspecified chronic kidney disease (principal); J96.01 Acute respiratory failure with hypoxia; I50.23 Acute on chronic systolic (congestive) heart failure; I48.20 Chronic atrial fibrillation, unspecified; E11.22 Type 2 diabetes mellitus with diabetic chronic kidney disease; N18.30 Chronic kidney disease, stage 3 unspecified; E87.6 Hypokalemia; I16.0 Hypertensive urgency; R33.9 Retention of urine, unspecified; I25.10 Atherosclerotic heart disease of native coronary artery without angina pectoris; Z95.5 Presence of coronary angioplasty implant and graft; Z79.02 Long term (current) use of antithrombotics/antiplatelets; Z88.0 Allergy status to penicillin; Z88.7 Allergy status to serum and vaccine; Z79.01 Long term (current) use of anticoagulants; Z95.810 Presence of automatic (implantable) cardiac defibrillator; Z87.891 Personal history of nicotine dependence; Z95.3 Presence of xenogenic heart valve
CPT/HCPCS: 36415; 71045; 80048; 80053; 82550; 82947; 83880; 84132; 84484; 85025; 93005; 93010; 93306; 94760; 96374; 99285-25; A9270; J1650; J1940; J3480

== ENCOUNTER 2020-11-27 18:15 | Emergency (ER) | payer MEDICARE ==
[~2020-11-27] VITALS: Ht 180.3 cm; Wt 81.7 kg
[~2020-11-27 18:15] MED LIST changes: +Amiodarone HCl200 MG PO; +CLOP75 PO; +FERSU300 PO; +Lisinopril2.5 MG PO; +METO50ER PO; +POTA10T PO; +TAMS.4ER PO; +Vitamin D2000 UNIT PO; +XARELTO20 MG PO
[2020-11-27 19:00] LABS: BASOPHILS ABSOLUTE AUTO 0.04 K/mm3 (0.00-0.23); BASOPHILS PERCENT AUTO 1 % (0-2); EOSINOPHILS PERCENT AUTO 1 % (0-6); Hematocrit 39.2 % (37.0-53.0); Hemoglobin 12.6 g/dL (13.5-17.5); IMMATURE GRAN ABSOLUTE AUTO 0.04 K/mm3 (0.00-0.10); IMMATURE GRAN PERCENT AUTO 1 % (0-1); LYMPHOCYTES ABSOLUTE AUTO 0.41 K/mm3 (0.84-5.20); LYMPHOCYTES PERCENT AUTO 5 % (21-46); MONOCYTES ABSOLUTE AUTO 0.57 K/mm3 (0.16-1.47); MONOCYTES PERCENT AUTO 7 % (4-13); Mean Corpuscular HGB 28.8 pg (26.0-34.0); Mean Corpuscular HGB Conc 32.1 g/dL (31.5-36.5); Mean Corpuscular Volume 90 fL (80-100); Mean Platelet Volume 10.3 fL (9.1-12.4); NEUTROPHILS PERCENT AUTO 85 % (41-73); Platelet Count 132 K/mm3 (150-400); RDW Coefficient Variation 16.3 % (11.7-14.2); RDW Standard Deviation 53.8 fL (35.1-46.3); Red Blood Cell Count 4.37 M/mm3 (4.30-5.90); White Blood Cell Count 7.76 K/mm3 (4.00-11.30)
[2020-11-27 19:32] LABS: Albumin, Blood 3.6 g/dL (3.4-5.0); Albumin/Globulin Ratio 0.8 (0.8-1.8); Bilirubin, Total 1.1 mg/dL (0.1-1.0); Bun/Creatinine Ratio 10.9 (12.0-20.0); Calcium, Blood 9.3 mg/dL (8.5-10.1); Creatinine, Blood 1.65 mg/dL (0.60-1.20); Globulin, Blood 4.4 g/dL (2.2-4.0)
[2020-11-27 20:10] LABS: Source, Urine Clean Catch
[2020-11-27 20:12] LABS: Appearance, Urine Clear (Clear); Bilirubin, Urine Neg (Neg); Blood, Urine Neg (Neg); Color, Urine Yellow (P-Yellow); Glucose Qualitative, Urine Neg (Neg); Ketones, Urine Neg (Neg); Leukocyte Esterase, Urine Neg (Neg); Nitrite, Urine Neg (Neg); Protein, Urine 1+ (Neg); Urobilinogen, Urine NORM (Normal)
== END 2020-11-27 22:23 | disposition home or self-care (01) ==
LOC: ER 18:15
PROVIDERS: Emergency Medicine; Physician Assistant
DX: E86.1 Hypovolemia (principal); R55 Syncope and collapse; I13.0 Hypertensive heart and chronic kidney disease with heart failure and stage 1 through stage 4 chronic kidney disease, or unspecified chronic kidney disease; E11.22 Type 2 diabetes mellitus with diabetic chronic kidney disease; I50.22 Chronic systolic (congestive) heart failure; N18.30 Chronic kidney disease, stage 3 unspecified; D63.1 Anemia in chronic kidney disease; I25.10 Atherosclerotic heart disease of native coronary artery without angina pectoris; I48.20 Chronic atrial fibrillation, unspecified; Z88.0 Allergy status to penicillin; Z88.7 Allergy status to serum and vaccine; Z79.899 Other long term (current) drug therapy; Z79.02 Long term (current) use of antithrombotics/antiplatelets; Z79.01 Long term (current) use of anticoagulants; Z95.5 Presence of coronary angioplasty implant and graft; Z95.0 Presence of cardiac pacemaker; Z87.891 Personal history of nicotine dependence
CPT/HCPCS: 36415; 71046; 80053; 84484; 85025; 93005; 93010; 99284-25; J7030